=== PATIENT | male | born 1950 | race Caucasian/White ===

== ENCOUNTER 2020-10-08 11:49 | Emergency (ER) | payer MEDICARE, MEDICAID, OTHER, SELFPAY ==
--- NOTE | 2020-10-08 | ECG_ITS ---
Test Reason : CARDIAC HISTORY Blood Pressure : / mmHG Vent. Rate : 059 BPM Atrial Rate : 059 BPM P-R Int : 150 ms QRS Dur : 094 ms QT Int : 440 ms P-R-T Axes : 073 043 048 degrees QTc Int : 435 ms Sinus bradycardia Otherwise normal ECG When compared with ECG of 08-DEC-2019 00:47, Premature atrial complexes are no longer Present Borderline criteria for Inferior infarct are no longer Present Referred By: Lulu Carias Electronically Signed By:Navneet Chacon
[2020-10-08 12:02] VITALS: BP 110/70; BP 114/55; PULSE 80; RESP 16; TEMP 36.5; O2SAT 97; O2SAT 98; BMI 24.0
--- NOTE | 2020-10-08 12:58 | ED.GENADULT ---
HPI - General Adult General Chief complaint: ETOH/Substance Use Stated complaint: WANTS DETOX FROM HEROIN, USED 5 BAGS THIS AM Time Seen by Provider: 10/08/20 12:33 Source: EMS Mode of arrival: EMS Limitations: no limitations History of Present Illness HPI narrative: 70yo male with a history of throat cancer, GERD here with complaints of seeking detox for opiates. Last use this morning (IV heroin). Has been on suboxone before but more interested in inpatient detox. Spoke to [facility] this morning and referred to ED for medical clearance. Had an episode of palpitations in the the night but denies pain, sob, dizziness, nausea or diaphoresis. No additional substance use. NO SI. Related Data Allergies Allergy/AdvReac Type Severity Reaction Status Date / Time No Known Allergies Allergy Unverified 01/04/20 16:15 [No Known Allergies*] Review of Systems Review of Systems: Yes all other systems are reviewed and are negative Constitutional: Constitutional: Reports no additional constitutional complaints, Denies body ache(s), Denies chills, Denies fever(s), Denies headache(s) and Denies weakness Eyes: Eyes: Reports no additional eye complaints and Denies change in vision ENT: Reports system reviewed and no additional complaints, except as documented, Denies dizziness, Denies headache(s), Denies nasal congestion, Denies nasal discharge and Denies neck pain Cardiovascular: Cardiovascular: Reports no additional cardiovascular complaints, Denies chest pain, Denies leg edema, Reports palpitations and Denies dyspnea Respiratory: Respiratory: Reports no additional respiratory complaints, Denies cough and Denies dyspnea Gastrointestinal: Gastrointestinal: Reports no additional gastrointestinal complaints, Denies abdominal pain, Denies diarrhea, Denies nausea and Denies vomiting Genitourinary: Genitourinary: Denies urinary incontinence Musculoskeletal: Musculoskeletal: Reports no additional musculoskeletal complaints, Denies back pain, Denies arthralgias, Denies joint swelling, Denies neck pain, Denies numbness and Denies tingling Integumentary/Breasts: Skin/Breast: Reports system reviewed and no additional complaints, except as docu and Denies rash Neurologic: Reports system reviewed and no additional complaints, except as documented, Denies Abnormal speech present, Denies dizziness, Denies headache(s), Denies numbness, Denies tingling and Denies weakness Psychiatric: Psychiatric: Denies anxiety, Denies depression, Denies visual hallucinations, Denies hallucinations, Denies homicidal ideation and Denies suicidal ideation Endocrine: Endocrine: Reports palpitations PMFSH Past Medical History Attestation statement: The following information was validated with the patient. Source: old records reviewed and nursing notes reviewed Social History Social History Alcohol intake: former Patient Tobacco Use Status: Current everyday Tobacco user Smoked in Last 30 Days: Yes Use of substances other than those prescribed or required for medical reasons: Yes Substance Use Type: Heroin Substance Use Frequency: Chronic Longstanding Last Used Substance: Hours (ago) Any prior treatment program specific to substance use: Yes Advance Directives: No Advance Directives Information Provided: No Physical Exam Vital Signs: Vital Signs: Last Vital Signs Temp 97.7 F 10/08/20 12:02 Pulse 80 10/08/20 12:02 Resp 16 10/08/20 12:02 BP 114/55 L 10/08/20 12:02 Pulse Ox 97 10/08/20 12:02 Body Mass Index 24.0 Const: General: cooperative, healthy appearing, comfortable and no acute distress Orientation/consciousness: patient oriented x3 Limitations: no limitations HENMT: Head: Yes normal to inspection Ears: hearing grossly normal bilaterally General nose exam: Normal external nose present Face and sinus: Yes normal facial exam Mouth: Normal oral and palatal mucosa present Throat: Yes posterior oropharynx normal Eyes: General: appearance normal, both eyes and all related structures Pupils: Equal, round and reactive pupils present Neck: Neck: Yes normal visual inspection Chest: Chest palpation & inspection: normal inspection of the chest Resp: Effort & Inspection: normal respiratory effort Auscultation: clear to auscultation bilaterally Cardio: Rate: regular rate Rhythm: regular rhythm Peripheral pulses: Peripheral pulses 2+ throughout GI: Inspection: Yes normal to inspection Palpation (GI): Soft to palpation and nontender Auscultation: normal bowel sounds Back/Spine/Pelvis: Thoracic/Lumbar Spine: thoracic and lumbar spine normal to inspection Skin: General skin exam: no rashes or lesions noted Neuro: General: patient oriented x3, no focal motor deficits and normal sensation to monofilament Cranial nerves: Yes Equal, round and reactive pupils present Cognition (Neuro): normal cognition Speech: No Abnormal speech present Gait exam (Neuro): Normal gait present Motor exam (neuro): 08/21 motor strength present throughout Extrem: General: Yes normal to inspection and Yes no pedal edema Course Course Course Narrative: 70 yo male here seeking detox for opiates. Episode of palpitations during the night but no other symptoms. Per kids activities coach patient will need EKG, labs, BAHENA, COVID screen for medical clearance. Apparently PD was on scene during transport although unclear why as patient reportedly here voluntary for detox with NO SI. WIll place care team consult to obtain collateral information. -no concern for acute ingestion or trauma. pending care team plan. placed in physician observation pending above. 1700-Sign out to night team pending above. Medical Decision Making Medical Records Medical records reviewed: Yes I reviewed the patient's medical records. Lab Data Lab results reviewed: Yes I reviewed the patient's lab results. Result diagrams: 10/08/20 13:26 10/08/20 13:26 Labs: Lab Results 10/08/20 10/08/20 10/08/20 Range/Units 13:26 13:26 13:26 WBC 7.9 (4.8-10.8) X10*3/uL RBC 4.37 L (4.60-5.80) X10*6/uL Hgb 12.6 L (14.0-18.0) g/dl Hct 37.7 L (42-52) % MCV 86.3 (80-98) fL MCH 28.8 (27.0-33.0) pg MCHC 33.4 (31.0-36.0) g/dl RDW 14.4 (11.0-16.0) % Plt Count 251 (160-400) X10*3/uL MPV 9.4 (9.4-12.4) fL Immature Gran % (Auto) 0.1 (0.0-0.4) % Neut % (Auto) 65.3 (45-73) % Lymph % (Auto) 25.7 (20-40) % Ell[place] % (Auto) 7.6 (2-11) % Eos % (Auto) 0.9 (0-4) % Baso % (Auto) 0.4 (0-2) % Lymph # (Auto) 2.0 (1.2-4.9) X10*3/uL [place] # (Auto) 0.6 (0.1-1.2) X10*3/uL Eos # (Auto) 0.1 (0.0-0.4) X10*3/uL Baso # (Auto) 0.0 (0.0-0.2) X10*3/uL Abs Immat Gran (auto) 0.01 (0.00-0.03) X10*3/uL Absolute Neuts (auto) 5.1 (2.0-8.3) X10*3/uL Absolute Nucleated RBC 0.000 (0.0-0.012) X10*3/uL Nucleated RBC % (auto) 0.0 (0.0-0.2) /100WBC Sodium 137 (135-145) mmol/L Potassium 4.2 (3.3-5.1) mmol/L Chloride 102 (96-108) mmol/L Carbon Dioxide 31 H (22-29) mmol/L Anion Gap 8 L (12-20) BUN 10 (9-16) mg/dL Creatinine 0.85 (0.5-1.4) mg/dL Estim Creat Clear Calc 94.0 Estimated GFR > 60 Random Glucose 133 H (60-115) mg/dL Calcium 8.9 (8.4-10.2) mg/dL Total Bilirubin 0.5 (0.0-1.0) mg/dL Direct Bilirubin 0.2 (0.0-0.5) mg/dL AST 19 (5-37) U/L ALT 11 (0-40) U/L Alkaline Phosphatase 66 (39-117) U/L Total Protein 6.3 L (6.5-8.0) g/dL Albumin 3.9 (3.5-5.0) g/dL Urine Opiates Screen (Not Detect) Ur Barbiturates Screen (Not Detect) Ur Phencyclidine Scrn (Not Detect) Ur Amphetamines Screen (Not Detect) U Benzodiazepines Scrn (Not Detect) Urine Cocaine Screen (Not Detect) U Marijuana (THC) Screen (Not Detect) Ethyl Alcohol mg/dL COVID-19 (JYOTI) Negative (Negative) COVID-19 Clin Com See Note 10/08/20 10/08/20 Range/Units 13:26 15:19 WBC (4.8-10.8) X10*3/uL RBC (4.60-5.80) X10*6/uL Hgb (14.0-18.0) g/dl Hct (42-52) % MCV (80-98) fL MCH (27.0-33.0) pg MCHC (31.0-36.0) g/dl RDW (11.0-16.0) % Plt Count (160-400) X10*3/uL MPV (9.4-12.4) fL Immature Gran % (Auto) (0.0-0.4) % Neut % (Auto) (45-73) % Lymph % (Auto) (20-40) % Ellsworth % (Auto) (2-11) % Eos % (Auto) (0-4) % Baso % (Auto) (0-2) % Lymph # (Auto) (1.2-4.9) X10*3/uL Ell[place] # (Auto) (0.1-1.2) X10*3/uL Eos # (Auto) (0.0-0.4) X10*3/uL Baso # (Auto) (0.0-0.2) X10*3/uL Abs Immat Gran (auto) (0.00-0.03) X10*3/uL Absolute Neuts (auto) (2.0-8.3) X10*3/uL Absolute Nucleated RBC (0.0-0.012) X10*3/uL Nucleated RBC % (auto) (0.0-0.2) /100WBC Sodium (135-145) mmol/L Potassium (3.3-5.1) mmol/L Chloride (96-108) mmol/L Carbon Dioxide (22-29) mmol/L Anion Gap (12-20) BUN (9-16) mg/dL Creatinine (0.5-1.4) mg/dL Estim Creat Clear Calc Estimated GFR Random Glucose (60-115) mg/dL Calcium (8.4-10.2) mg/dL Total Bilirubin (0.0-1.0) mg/dL Direct Bilirubin (0.0-0.5) mg/dL AST (5-37) U/L ALT (0-40) U/L Alkaline Phosphatase (39-117) U/L Total Protein (6.5-8.0) g/dL Albumin (3.5-5.0) g/dL Urine Opiates Screen POSITIVE H (Not Detect) Ur Barbiturates Screen Not Detected (Not Detect) Ur Phencyclidine Scrn Not Detected (Not Detect) Ur Amphetamines Screen Not Detected (Not Detect) U Benzodiazepines Scrn Not Detected (Not Detect) Urine Cocaine Screen Not Detected (Not Detect) U Marijuana (THC) Screen Not Detected (Not Detect) Ethyl Alcohol < 10 mg/dL COVID-19 (JYOTI) (Negative) COVID-19 Clin Com ECG Data Attestation: I personally reviewed and interpreted this ECG as follows: Interpretation: SB with rate 57, normal pr, normal qrs, normal qtc Discharge Plan Discharge Clinical Impression: Opioid abuse
[2020-10-08 13:33] LABS: MANUAL DIFF FLAG NO
[2020-10-08 13:41] LABS: Basophils Percent Auto 0.4 % (0-2); Eosinophils Absolute Auto 0.1 X10*3/uL (0.0-0.4); Eosinophils Percent Auto 0.9 % (0-4); Hematocrit 37.7 % (42-52); Hemoglobin 12.6 g/dl (14.0-18.0); Imm Gran Abs Auto 0.01 X10*3/uL (0.00-0.03); Imm Gran Pct Auto 0.1 % (0.0-0.4); Lymphocytes Percent Auto 25.7 % (20-40); Mean Corpuscular HGB Conc 33.4 g/dl (31.0-36.0); Mean Corpuscular Hemoglobin 28.8 pg (27.0-33.0); Mean Corpuscular Volume 86.3 fL (80-98); Mean Platelet Volume 9.4 fL (9.4-12.4); Monocytes Absolute Auto 0.6 X10*3/uL (0.1-1.2); Monocytes Percent Auto 7.6 % (2-11); Neutrophils Absolute Auto 5.1 X10*3/uL (2.0-8.3); Neutrophils Percent Auto 65.3 % (45-73); Platelet Count 251 X10*3/uL (160-400); Red Blood Count 4.37 X10*6/uL (4.60-5.80); Red Cell Distribution Width 14.4 % (11.0-16.0); White Blood Count 7.9 X10*3/uL (4.8-10.8)
[2020-10-08 13:49] LABS: COVID-19 Test Negative (Negative)
[2020-10-08 14:03] LABS: Ethanol < 10 mg/dL
[2020-10-08 14:10] LABS: Alanine Aminotransferase 11 U/L (0-40); Albumin Level 3.9 g/dL (3.5-5.0); Alkaline Phosphatase 66 U/L (39-117); Anion Gap 8 (12-20); Aspartate Amino Transferase 19 U/L (5-37); Bilirubin Direct 0.2 mg/dL (0.0-0.5); Bilirubin Total 0.5 mg/dL (0.0-1.0); Blood Urea Nitrogen 10 mg/dL (9-16); Calcium 8.9 mg/dL (8.4-10.2); Carbon Dioxide 31 mmol/L (22-29); Chloride 102 mmol/L (96-108); Estimated Glomerular Filt Rate > 60; Glucose Random 133 mg/dL (60-115); Potassium 4.2 mmol/L (3.3-5.1); Sodium 137 mmol/L (135-145); Total Protein 6.3 g/dL (6.5-8.0)
[2020-10-08 16:00] LABS: Amphetamine Screen Urine Not Detected (Not Detect); Barbiturates, Urine Not Detected (Not Detect); Benzodiazepines Screen Urine Not Detected (Not Detect); Cannabinoid Screen Urine Not Detected (Not Detect); Cocaine Screen Urine Not Detected (Not Detect); Opiate Screen Urine POSITIVE (Not Detect); Phencyclidine Screen Urine Not Detected (Not Detect)
[2020-10-08] MEDS: LORazepam 0.5 MG TABLET 1 MG PO (16:15)
--- NOTE | 2020-10-08 16:29 | MHC.CARE ---
Call to [facility] intake. They do not have any record of communication with patient. Faxed transfer summary and facesheet. They do not have beds, can F/U tomorrow. Failure Analysis Engineer or CARE Team will check in with patient to discuss plan Provider would like CARE Team to reach out to collaterals to see if there is a psychiatric component.
[2020-10-08 17:10] VITALS: BP 92/50; PULSE 58; RESP 18; TEMP 36.5; O2SAT 96
--- NOTE | 2020-10-08 19:09 | MHC.RECOVSUP ---
? Reason for consult Follow up o Current location: [facility] o Identified substance use concern: Heroin - Withdrawal - Seeking ATS (detox) - Support ? Intervention: <del>o</del> <del>ATS</del> <del>bed</del> <del>search</del> <del>started/completed/in</del> <del>process</del> <del>o</del> <del>MAT</del> <del>started</del> <del>or</del> <del>to</del> <del>be</del> <del>started</del> o Community resources provided o Harm reduction discussion ? Plan: o <del>Referral</del> <del>to</del> <del>[facility]</del> <del>o</del> <del>Bed</del> <del>search</del> <del>in</del> <del>progress</del> <del>to</del> <del>o</del> <del>Follow</del> <del>up</del> <del>tomorrow</del> <del>o</del> <del>Patient</del> <del>awaiting</del> <del>crisis</del> <del>evaluation</del> <del>o</del> <del>Patient</del> <del>to</del> <del>follow</del> <del>up</del> <del>with</del> <del>[facility]</del> <del>after</del> <del>discharge</del> ? Additional information: I followed up with ryland and ryland stated that maybe in the Morning..
--- NOTE | 2020-10-08 19:59 | MHC.CARE ---
CARE team has made several attempts to fax referral packet to [facility] for review, with all attempts failing. CARE/Recovery team will follow up with [facility] in the morning. ED provider requested that some collateral be obtained due to concern for the presence of a possible psychiatric disorder, however there are no contacts listed in pt's current medical record and has not provided any. Previous medical record has contact information for pt's brother Kenny, however it is also noted that they are minimally involved in one another's lives. This development writer found that pt has a history of hospitalization on M5 in June 2019 after receiving his diagnosis of throat cancer and attempting to end his life via intentional overdose and another attempt in November 2019 that did not result in hospitalization. No other psychiatric history documented. Per record- pt had been in recovery and taking suboxone, relapsing after being diagnosed with cancer.
[2020-10-08] MEDS: Acetaminophen 325 MG TABLET 650 MG PO (20:03)
[2020-10-08 20:13] VITALS: PULSE 59
[2020-10-08 20:21] VITALS: BP 104/44; PULSE 59; RESP 14; TEMP 36.6; O2SAT 95
--- NOTE | 2020-10-08 20:24 | PC.NURSE ---
Patient requested Tylenol for Headache, administered 650 mg as ordered, COW assessed scored 2, patient asked of withdrawal symptoms/notified that he is aware of withdrawal and at this time he asymptomatic, agreed to notify if he feels withdrawal, VSS, will continue to monitor.
[2020-10-08 23:50] VITALS: BP 100/64; PULSE 54; RESP 17; TEMP 36.8; O2SAT 97
[2020-10-09 04:22] VITALS: PULSE 60
[2020-10-09 04:23] VITALS: BP 139/85; PULSE 60; RESP 17; TEMP 36.5; O2SAT 99
[2020-10-09 04:30] VITALS: BP 139/85; PULSE 60
[2020-10-09] MEDS: cloNIDine HCL 0.1 MG TABLET PO (04:30)
--- NOTE | 2020-10-09 06:03 | PC.NURSE ---
Patient slept through the night, up once for bathroom use back, VSS, scored 3 on COWS, received Clonidine 0.1 mg with + effect, will continue to monitor.
--- NOTE | 2020-10-09 07:12 | PC.NURSE ---
report taken from arely stearns pt here for detox help, has reportedly had minimal withdrawal s/s, was given prn clonidine per previous shift rn. is sitting up at bedside, eating breakfast, tolerating po w/o issue. wctm for dc needs.
--- NOTE | 2020-10-09 09:55 | MHC.CARE ---
Patient finished telephone intake with JOSEPHINE Fernandez at [facility]. Has been accepted, they will pick him up at home and are arranging time with patient directly. CARE Team to fax COVID results and LYFT patient home. Providers updated about plan.
[2020-10-09 10:42] VITALS: BP 114/63; PULSE 56; RESP 16; TEMP 36.9; O2SAT 95
== END 2020-10-09 11:26 | disposition home or self-care (01) ==
PROVIDERS: Nurse Practitioner Family; Emergency Provider Emergency Medicine Emergency Medical Services; PCP Internal Medicine
DX: F11.10 Opioid abuse, uncomplicated (principal); R00.2 Palpitations; Z20.822 Contact with and (suspected) exposure to COVID-19
CPT/HCPCS: 36415; 80048; 80076; 80307; 82077; 85025; 87635; 93005; 99285

== ENCOUNTER 2021-01-18 16:27 | Inpatient (IN) | payer MEDICARE, MEDICAID, SELFPAY ==
--- NOTE | ~2021-01-18 | XR_ITS ---
EXAMINATION: XR HAND, RIGHT CLINICAL INFORMATION: Right hand pain and swelling. COMPARISON: None TECHNIQUE: PA, lateral, and oblique views of the right hand. FINDINGS: Probable nondisplaced fracture through the radial aspect of the 1st distal phalangeal base which contacts the articular surface. Overlying soft tissue swelling. First interphalangeal joint space narrowing with small marginal osteophytes. Additional degenerative arthritis at the triscaphe and 1st carpometacarpal joints as well as scattered throughout the interphalangeal joints. Possible mildly displaced, acute fracture along the radial base of the 5th proximal phalanx. Correlation for focal tenderness is recommended. XR/XR hand RT 2V IMPRESSION: 1. Probable nondisplaced fracture through the radial aspect of the 1st distal phalanx which contacts the articular surface. 2. Possible mildly displaced fracture along the radial base of the 5th proximal phalanx. Correlate for focal tenderness. 3. Scattered degenerative arthritis.
[2021-01-18 16:33] VITALS: BP 139/77; PULSE 71; RESP 18; TEMP 36.7; O2SAT 98; BMI 21.1
--- NOTE | 2021-01-18 17:07 | MHC.RECOVSUP ---
Recovery Support note: This ghost writer received a call earlier today from the brother of this patient seeking information on detox. Brother reports that patient was at [facility] a week ago however was discharged due to making SI statements. This ghost writer explained that if patient is still feeling suicidal, he may need a higher level of care. This ghost writer conducted an ATS bedsearch and provided patient's brother with information on available beds.
[2021-01-18 17:52] LABS: MANUAL DIFF FLAG NO
[2021-01-18 17:55] LABS: Basophils Percent Auto 0.3 % (0-2); Eosinophils Absolute Auto 0.1 X10*3/uL (0.0-0.4); Eosinophils Percent Auto 1.2 % (0-4); Hematocrit 37.4 % (42-52); Hemoglobin 12.6 g/dl (14.0-18.0); Imm Gran Abs Auto 0.01 X10*3/uL (0.00-0.03); Imm Gran Pct Auto 0.1 % (0.0-0.4); Lymphocytes Absolute Auto 2.1 X10*3/uL (1.2-4.9); Lymphocytes Percent Auto 29.3 % (20-40); Mean Corpuscular HGB Conc 33.7 g/dl (31.0-36.0); Mean Corpuscular Hemoglobin 29.4 pg (27.0-33.0); Mean Corpuscular Volume 87.4 fL (80-98); Mean Platelet Volume 9.9 fL (9.4-12.4); Monocytes Absolute Auto 0.7 X10*3/uL (0.1-1.2); Monocytes Percent Auto 9.8 % (2-11); Neutrophils Absolute Auto 4.3 X10*3/uL (2.0-8.3); Neutrophils Percent Auto 59.3 % (45-73); Platelet Count 265 X10*3/uL (160-400); Red Blood Count 4.28 X10*6/uL (4.60-5.80); Red Cell Distribution Width 13.4 % (11.0-16.0); White Blood Count 7.3 X10*3/uL (4.8-10.8)
[2021-01-18 18:12] LABS: Ethanol < 10 mg/dL
[2021-01-18 18:14] LABS: Anion Gap 13 (12-20); Blood Urea Nitrogen 13 mg/dL (9-16); Calcium 9.5 mg/dL (8.4-10.2); Carbon Dioxide 28 mmol/L (22-29); Chloride 102 mmol/L (96-108); Creatinine Clr Calc Pharmacy 70.4; Estimated Glomerular Filt Rate > 60; Glucose Random 91 mg/dL (60-115); Potassium 4.5 mmol/L (3.3-5.1); Sodium 138 mmol/L (135-145)
[2021-01-18 18:15] LABS: Amphetamine Screen Urine Not Detected (Not Detect); Barbiturates, Urine Not Detected (Not Detect); Benzodiazepines Screen Urine Not Detected (Not Detect); Cannabinoid Screen Urine Not Detected (Not Detect); Cocaine Screen Urine Not Detected (Not Detect); Fentanyl, urine POSITIVE (Not Detect); Opiate Screen Urine Not Detected (Not Detect); Phencyclidine Screen Urine Not Detected (Not Detect)
--- NOTE | 2021-01-18 18:23 | ED_ITS ---
HPI - Psych General Chief Complaint: Psychiatric Symptoms Stated Complaint: crisis Time Seen by Provider: 01/18/21 17:08 History of Present Illness HPI Narrative: Patient presented today wanting help. He denies any suicidal homicidal ideation currently. But had suicidal ideation earlier. Patient used heroin. Wants to stop. Has a history of opiate addiction. Stop for 30 years. Subsequently patient was given opiate. Had a history of esophageal cancer was in hospice program. Patient subsequently left the hospice program continue to need narcotics. And decided to get heroin from the street. Patient's shoots his drugs. Patient denies any SI HI. Presented for help. He has no nausea no vomiting is tolerating fluids. No fever no chills. Related Data Home Medications Medication Instructions Recorded Confirmed clonazepam 1 mg tablet 1 mg PO TID PRN 10/08/20 01/18/21 fluoxetine 20 mg capsule 20 mg PO DAILY 10/08/20 01/18/21 quetiapine 25 mg tablet 25 mg PO BEDTIME 10/08/20 01/18/21 trazodone 50 mg tablet 50 mg PO BEDTIME PRN 10/08/20 01/18/21 omeprazole 20 mg capsule,delayed 20 mg PO DAILY 01/18/21 01/18/21 release ropinirole 1 mg tablet 1 mg PO BID 01/18/21 01/18/21 Previous Rx's Medication Instructions Recorded clonidine HCl 0.1 mg tablet 0.1 mg PO TID #30 tab 10/09/20 Allergies Allergy/AdvReac Type Severity Reaction Status Date / Time No Known Allergies Allergy Unverified 01/04/20 16:15 [No Known Allergies*] Review of Systems Review of Systems: No fever no chills no cough no congestion or respiratory symptoms All system reviewed otherwise negative [facility] Past Medical History Attestation statement: The following information was validated with the patient. Social History Social History Alcohol intake: current Alcohol intake frequency: holidays/special occasions only Patient Tobacco Use Status: Current everyday Tobacco user Use of substances other than those prescribed or required for medical reasons: Yes Substance Use Type: Heroin Last Used Substance: Just Prior to Admission Advance Directives: No Advance Directives Information Provided: No Physical Exam Vital Signs: Vital Signs: Last Vital Signs Temp 98.1 F 01/18/21 16:33 Pulse 60 10/02/21 22:54 Resp 18 01/18/21 16:33 BP 156/73 H 01/18/21 22:54 Pulse Ox 98 01/18/21 16:33 Body Mass Index 21.1 Appearance: Alert. Oriented X3. No acute distress. Eyes: Pupils equal, round and reactive to light. ENT: Pharynx normal. Neck: Normal inspection. Neck supple. No lymph nodes noted. No crepitus CVS: Normal heart rate and rhythm. Pulses normal. Normal S1 and S2 Respiratory: No respiratory distress. Breath sounds normal. No Wheezing. No rales Abdomen: Soft and nontender. No rigidity. No distention. good BS x4 Skin: Skin warm and dry. Normal skin color. Normal skin turgor. Extremities: No lower extremity edema. Neurovascular intact to all extremities. No Lacerations. No Rash Neuro: Oriented X 3. No motor deficit. No sensory deficit. Moving all extermities. No slurred speech MDM - Psych MDM Narrative Medical decision making narrative: Well-appearing no acute distress awaiting crisis evaluation Patient evaluated by [facility]. Patient to be admitted. Positive suicidal ideation. Lab Data Result diagrams: 01/18/21 17:44 01/18/21 17:44 Labs: Lab Results 01/18/21 01/18/21 01/18/21 Range/Units 17:44 17:44 17:44 WBC 7.3 (4.8-10.8) X10*3/uL RBC 4.28 L (4.60-5.80) X10*6/uL Hgb 12.6 L (14.0-18.0) g/dl Hct 37.4 L (42-52) % MCV 87.4 (80-98) fL MCH 29.4 (27.0-33.0) pg MCHC 33.7 (31.0-36.0) g/dl RDW 13.4 (11.0-16.0) % Plt Count 265 (160-400) X10*3/uL MPV 9.9 (9.4-12.4) fL Immature Gran % (Auto) 0.1 (0.0-0.4) % Neut % (Auto) 59.3 (45-73) % Lymph % (Auto) 29.3 (20-40) % [place] % (Auto) 9.8 (2-11) % Eos % (Auto) 1.2 (0-4) % Baso % (Auto) 0.3 (0-2) % Lymph # (Auto) 2.1 (1.2-4.9) X10*3/uL [place] # (Auto) 0.7 (0.1-1.2) X10*3/uL Eos # (Auto) 0.1 (0.0-0.4) X10*3/uL Baso # (Auto) 0.0 (0.0-0.2) X10*3/uL Abs Immat Gran (auto) 0.01 (0.00-0.03) X10*3/uL Absolute Neuts (auto) 4.3 (2.0-8.3) X10*3/uL Absolute Nucleated RBC 0.000 (0.0-0.012) X10*3/uL Nucleated RBC % (auto) 0.0 (0.0-0.2) /100WBC Sodium 138 (135-145) mmol/L Potassium 4.5 (3.3-5.1) mmol/L Chloride 102 (96-108) mmol/L Carbon Dioxide 28 (22-29) mmol/L Anion Gap 13 (12-20) BUN 13 (9-16) mg/dL Creatinine 0.87 (0.5-1.4) mg/dL Estim Creat Clear Calc 70.4 Estimated GFR > 60 Random Glucose 91 (60-115) mg/dL Calcium 9.5 D (8.4-10.2) mg/dL Urine Opiates Screen (Not Detect) Urine Fentanyl Screen (Not Detect) Ur Barbiturates Screen (Not Detect) Ur Phencyclidine Scrn (Not Detect) Ur Amphetamines Screen (Not Detect) U Benzodiazepines Scrn (Not Detect) Urine Cocaine Screen (Not Detect) U Marijuana (THC) Screen (Not Detect) Ethyl Alcohol < 10 mg/dL 01/18/21 Range/Units 17:44 WBC (4.8-10.8) X10*3/uL RBC (4.60-5.80) X10*6/uL Hgb (14.0-18.0) g/dl Hct (42-52) % MCV (80-98) fL MCH (27.0-33.0) pg MCHC (31.0-36.0) g/dl RDW (11.0-16.0) % Plt Count (160-400) X10*3/uL MPV (9.4-12.4) fL Immature Gran % (Auto) (0.0-0.4) % Neut % (Auto) (45-73) % Lymph % (Auto) (20-40) % [place]arro % (Auto) (2-11) % Eos % (Auto) (0-4) % Baso % (Auto) (0-2) % Lymph # (Auto) (1.2-4.9) X10*3/uL [place] # (Auto) (0.1-1.2) X10*3/uL Eos # (Auto) (0.0-0.4) X10*3/uL Baso # (Auto) (0.0-0.2) X10*3/uL Abs Immat Gran (auto) (0.00-0.03) X10*3/uL Absolute Neuts (auto) (2.0-8.3) X10*3/uL Absolute Nucleated RBC (0.0-0.012) X10*3/uL Nucleated RBC % (auto) (0.0-0.2) /100WBC Sodium (135-145) mmol/L Potassium (3.3-5.1) mmol/L Chloride (96-108) mmol/L Carbon Dioxide (22-29) mmol/L Anion Gap (12-20) BUN (9-16) mg/dL Creatinine (0.5-1.4) mg/dL Estim Creat Clear Calc Estimated GFR Random Glucose (60-115) mg/dL Calcium (8.4-10.2) mg/dL Urine Opiates Screen Not Detected (Not Detect) Urine Fentanyl Screen POSITIVE H (Not Detect) Ur Barbiturates Screen Not Detected (Not Detect) Ur Phencyclidine Scrn Not Detected (Not Detect) Ur Amphetamines Screen Not Detected (Not Detect) U Benzodiazepines Scrn Not Detected (Not Detect) Urine Cocaine Screen Not Detected (Not Detect) U Marijuana (THC) Screen Not Detected (Not Detect) Ethyl Alcohol mg/dL Discharge Plan Discharge Clinical Impression: Suicidal ideation Prescriptions: No Action quetiapine 25 mg tablet 25 mg PO BEDTIME RF: 0 clonazepam 1 mg tablet 1 mg PO TID PRN (Reason: Anxiety) RF: 0 fluoxetine 20 mg capsule 20 mg PO DAILY RF: 0 trazodone 50 mg tablet 50 mg PO BEDTIME PRN (Reason: Insomnia) RF: 0 clonidine HCl 0.1 mg tablet 0.1 mg PO TID Qty: 30 RF: 0 ropinirole 1 mg tablet 1 mg PO BID RF: 0 omeprazole 20 mg capsule,delayed release(DR/EC) 20 mg PO DAILY RF: 0
--- NOTE | 2021-01-18 19:35 | ECG_ITS ---
Test Reason : MED CLEARANCE Blood Pressure : / mmHG Vent. Rate : 058 BPM Atrial Rate : 058 BPM P-R Int : 154 ms QRS Dur : 096 ms QT Int : 440 ms P-R-T Axes : 059 039 058 degrees QTc Int : 431 ms Sinus bradycardia Otherwise normal ECG When compared with ECG of 08-OCT-2020 13:42, No significant change was found Referred By: Selena Sims Electronically Signed By:ROSARIO CASTELLON
--- NOTE | 2021-01-18 20:05 | MHC.CARE ---
CARE team contacted [facility]. Pt was evaluated prior to arrival to the ED at the [facility] crisis office in [place] with disposition for inpatient psychiatric admission. His brother transported him to the ED to await placement. There is an available bed on S1 this evening and pt will be presented for admission.
[2021-01-18 22:54] VITALS: BP 156/73; PULSE 60
[2021-01-18] MEDS: cloNIDine HCL 0.1 MG TABLET PO (22:54)
[2021-01-18] MEDS: QUEtiapine Fumarate 25 MG TABLET PO (22:54)
[2021-01-18] MEDS: clonazePAM 1 MG TABLET PO (22:56)
[2021-01-18] MEDS: rOPINIRole HCL 1 MG TABLET PO (22:56)
[2021-01-19 08:01] VITALS: BP 125/57; PULSE 52; RESP 16; O2SAT 97
[2021-01-19] MEDS: Omeprazole 20 MG CAPSULE.DR PO (08:27)
[2021-01-19] MEDS: FLUoxetine HCl 20 MG CAPSULE PO (08:27)
[2021-01-19 08:28] VITALS: BP 125/57; PULSE 52
[2021-01-19] MEDS: cloNIDine HCL 0.1 MG TABLET PO ×3 (08:28→21:14)
[2021-01-19] MEDS: rOPINIRole HCL 1 MG TABLET PO ×2 (08:37→23:59)
[2021-01-19 10:58] VITALS: BP 125/63; PULSE 50; RESP 16; O2SAT 97
[2021-01-19 15:30] LABS: COVID-19 Test Negative (Negative)
[2021-01-19 16:10] VITALS: BP 132/69; PULSE 60; RESP 18; TEMP 36.8; O2SAT 99
[2021-01-19 16:14] VITALS: BP 132/69; PULSE 60
[2021-01-19] MEDS: clonazePAM 1 MG TABLET PO ×2 (16:14→22:24)
--- NOTE | 2021-01-19 19:04 | MHC.CARE ---
CARE team spoke with registered medical transcriptionist psychiatrist Dr. Gaytan via [employer] re: initial plan for pt to be admitted to S1 Older Adult Unit. Per Dr. Gaytan, pt would be a better fit for one of the two adult units due to concerns for behavioral issues related to opiate withdrawal. Pt is unable to be admitted to either adult unit this evening and will likely remain in ED overnight pending confirmed plan of care.
[2021-01-19 21:14] VITALS: BP 122/70; PULSE 70
[2021-01-19] MEDS: QUEtiapine Fumarate 25 MG TABLET PO (21:14)
[2021-01-19] MEDS: traZODone HCL 50 MG TABLET PO (22:25)
[2021-01-19] MEDS: LORazepam 1 MG TABLET 2 MG PO (23:59)
[2021-01-20] VITALS (8 sets, daily range): BP systolic 95–113; BP diastolic 59–70; PULSE 57–86; RESP 12–18; TEMP 36.4–37; O2SAT 96–99; BMI 20.4
--- NOTE | 2021-01-20 06:33 | PC.NURSE ---
Patient slept through the night, no distress observed/reported, patient's disposition is inpatient bed search, pre-accepted to S1, behavior appropriate, medication compliant, will continue to monitor
--- NOTE | 2021-01-20 07:22 | PC.NURSE ---
patient appears to remain asleep at present, respirations are even and unlabored, patient appears in no distress.
[2021-01-20] MEDS: cloNIDine HCL 0.1 MG TABLET PO ×2 (08:00→14:09)
[2021-01-20] MEDS: Omeprazole 20 MG CAPSULE.DR PO (08:00)
[2021-01-20] MEDS: FLUoxetine HCl 20 MG CAPSULE PO (08:01)
[2021-01-20] MEDS: rOPINIRole HCL 1 MG TABLET PO ×2 (08:01→20:23)
--- NOTE | 2021-01-20 18:06 | PC.ADMIT ---
Bulmaro Astudillo is a 70 year old male who presented to the unit in a wheelchair escorted by security from the ED pod. Patient is Alert and oriented x4. Patient is agitated with a congruent affect. Patient was taken to be weighed. Weight was 61 kg, where patient then stated I lost 5 pounds . When asked he stated that it was unintentional. Patient is dressed in hospital attire with non skid socks on. Patient is being admitted for suicidal ideation. Patient verbalized to his therapist once he received his check he intends to buy as many drugs as possible and over dose as my life is not worth living . On 01/18 patient reported using 10 bag of heroin to actively end his life. Patient was then admitted to [facility] on 01/18 later in the day. Patient has a substance abuse history and reported being clean for 30 years until 2019. Patient received a diagnosis of esophageal cancer in 2019 where he was given 6 months to live. Patient was placed on hospice services where he was later dismissed due to actively using heroin. Patient presenting agitated and anxious during admission interview. Patient stated that he was having tremors, leg cramps, and was nauseous. Vital signs were stable. Nurse practitioner on was notified. Longterm through admission assessment patient became very agitated and stated he was done answering questions. Patient continued to get up and walk away. Patient proceeded to get up and walk to [facility] to eat dinner, ate 75% of meal. Patient is asking for methadone or suboxone, Nurse practitioner aware.
--- NOTE | 2021-01-20 18:23 | HO.PSYADMNOT ---
HPI Chief Complaint: suicidal ideation Sources of Information: patient interviewed, chart reviewed and crisis/core team assessment reviewed HPI Subjective Notes: Lozano Warning and Conditional Voluntary Narrative: Bulmaro is a 70 y.o. Who carries a dx of MDD, recurrent and opioid use disorder. He [place] [facility] [place]21 due to SI with plan to OD if he is not placed in detox today. His counselor at [facility] contacted [facility] crisis for assessment and he was seen on site at [facility]. He has recent relapse on heroin, last used 10 bundles IV on 01/18/21, using daily x 1 week. Says he wants to stop using, not on MAT, previously on buprenorphine 8-2mg film QD but D/C?d in November. Has co-morbid medical issues, says he has biopsy coming up at end of mo and has been diagnosed with esophageal cancer in 2019, hx of being in hospice. Reports leaving hospice program AMA due to receiving morphine there and craving narcotics, decided to get heroin from the street.? I evaluated the pt this evening and upon interview he reports ?I dont want to do fenatnyl anymore, i have to be on suboxone. I did good on it.? Says he tried to abstain from heroin ?cold turkey for a couple days, but yesterday i couldnt do it anymore.? Endorses sx of withdrawal including ?cramping in my legs and arms, i cant stand it.? Per pt, he was in hospice a couple yrs ago ?for trouble with my throat, I got turned on to morphine and away we went.? Reports his mood is ?very depressed.? Sleep is poor. Says he is dizzy, ?I thought i was gonna pass out just going to the nurses station.? He is able to eat, has difficulty swallowing. He is perseverative during interview on wanting suboxone and doesn?t want to talk about much else. Consult to addiction services placed.? Current med regimen: Klonopin 1 mg TID PRN, prozac 20 mg QD, seroquel 25 mg QHS, trazodone 50 mg QHS PRN, clonidine 0.1 mg TID. Past Psychiatric History: Past meds: gabapentin 300 mg BID PPH: -Has OP services at [facility]. Has rep payee (brother) -Prescriber is Chaparro Ramirez -Hx of multiple crisis evals and IPLOC. Last crisis eval in 12/2019 for SI, disposition was IPLOC. Hx of being admitted to [facility] 11/2019 after being found unresponsive by his visiting nurse, intentional OD on his meds. Prev on [facility] 06/2019 due to being found unresponsive in his home, allegedly wrote a note in which he indicated that he had planned to kill himself. Medical Evaluation Reviewed: Yes PMFSH Social History: SH: -He resides by himself alone. He has two brothers. Single and has never been , no children. 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 Last used 10 bundles on 01/18/21. -Hx of MAT, previously on buprenorphine 8-2mg film QD but D/C?d in 11/2020. -Per chart, he was sober over 30 yrs, relapsed 2019 s/p being diagnosed with throat cancer Diagnostics Vital Signs (24Hr): Vital Signs - 24 hr 01/19/21 21:14 01/20/21 05:02 01/20/21 08:00 Temperature 97.7 F Pulse Rate 70 66 66 Respiratory Rate 16 Blood Pressure 122/70 96/66 96/66 Pulse Oximetry 98 01/20/21 08:34 01/20/21 14:09 01/20/21 16:33 Temperature 98.6 F 97.6 F Pulse Rate 57 57 61 Respiratory Rate 12 14 Blood Pressure 95/60 95/60 113/70 Pulse Oximetry 99 96 Body Mass Index 20.4 Labs Results: 01/18/21 17:44 01/18/21 17:44 Labs: Laboratory Results - last 48 hr 01/19/21 15:06 COVID-19 (JYOTI) Negative COVID-19 Clin Com See Note Meds/Allergies Meds Home Medications Acetaminophen (Acetaminophen 325 Mg Tablet) 650 mg PO Q6H PRN PRN Reason: Headache/Pain Mild Scale (1-3) Last Admin: 01/21/21 04:10 Dose: 650 mg Documented by: Al Hydroxide/Mg Hydroxide (Magnesium Hydrox/Alum Hydrox 30 Ml Oral.Susp) 30 ml PO Q6H PRN PRN Reason: Heartburn/Nausea Buprenorphine/Naloxone (Buprenorphine/Naloxone 2/0.5mg Film) 1 film SUBLINGUAL DAILY [facility] Last Admin: 01/21/21 07:29 Dose: 1 film Documented by: Clonazepam (Clonazepam 0.5 Mg Tablet) 0.5 mg PO TID PRN PRN Reason: Anxiety Last Admin: 01/21/21 04:10 Dose: 0.5 mg Documented by: Clonidine HCl (Clonidine Hcl 0.1 Mg Tablet) 0.05 mg PO TID [facility]; Protocol Last Admin: 01/21/21 07:30 Dose: 0.05 mg Documented by: Fluoxetine HCl (Fluoxetine Hcl 20 Mg Capsule) 20 mg PO DAILY [facility] Last Admin: 01/21/21 07:29 Dose: 20 mg Documented by: Hydroxyzine HCl (Hydroxyzine Hcl 25 Mg Tablet) 25 mg PO BEDTIME PRN PRN Reason: Anxiety Last Admin: 01/20/21 23:57 Dose: 25 mg Documented by: Magnesium Hydroxide (Milk Of Magnesia 30 Ml Oral.Susp) 30 ml PO DAILY PRN PRN Reason: Constipation Omeprazole (Omeprazole 20 Mg Capsule.Dr) 20 mg PO DAILY [facility] Last Admin: 01/21/21 07:30 Dose: 20 mg Documented by: Quetiapine Fumarate (Quetiapine Fumarate 50 Mg Tablet) 50 mg PO BEDTIME [facility] Last Admin: 01/20/21 20:23 Dose: 50 mg Documented by: Ropinirole HCl (Ropinirole Hcl 1 Mg Tablet) 1 mg PO BID [facility] Last Admin: 01/21/21 07:30 Dose: 1 mg Documented by: Trazodone HCl (Trazodone Hcl 50 Mg Tablet) 50 mg PO BEDTIME PRN PRN Reason: Insomnia Last Admin: 01/20/21 23:57 Dose: 50 mg Documented by: Allergies Allergies Allergy/AdvReac Type Severity Reaction Status Date / Time No Known Allergies Allergy Unverified 01/04/20 16:15 [No Known Allergies*] Mental Status Exam Mental Status Exam Narrative: A&O. unkempt appearance, in hospital attire, eating crackers in bed. Poor eye contact, attentive. No Tics or Tremors. No abnormal involuntary movements. Agitated, withdrawn, difficult to engage. Non-pressured speech, non-spontaneous with regular rate and rhythm, normal volume and prosody. No prolonged speech latency, mumbling, difficult to understand, appears to have some hearing loss. Mood is ?depressed,? affect is irritable. Denies SI/SIB/HI upon inquiry today. Denies A/VH or delusional thought content. Thoughts are coherent, organized but perseverative on wanting suboxone induction. No known cognitive or memory impairment. Insight/ Judgment fair and adequate. Assessment & Plan Assessment & Plan (1) Opioid use disorder: Status: Acute Code(s): F11.90 - Opioid use, unspecified, uncomplicated (2) MDD (major depressive disorder), recurrent episode, moderate: Status: Acute Code(s): F33.1 - Major depressive disorder, recurrent, moderate Assessment and Plan: Bulmaro is a 70 y.o. Who carries a dx of MDD, recurrent and opioid use disorder. He presented [place] [facility] [place] due to SI with plan to OD if he is not placed in detox today. He is presenting with sx of agitation, hopelessness, poor sleep, low energy, and reporting withdrawal sx. Will monitor COWS qshift. Asking for suboxone induction, prev on 8-2 mg film daily, last prescribed 11/2020. Last use of heroin was 01/18/2021 in afternoon, 10 bags IV. Plan: 1. Decrease klonopin to 0.5 mg TID due to risk of respiratory depression with buprenorphine 2. Decrease clonidine to 0.05 mg TID due to low blood pressure, reporting dizziness 3. start suboxone 2 mg film daily, consult to addiction placed 4. continue prozac 20 mg QD for sx of depression, anxiety 5. increase seroquel to 50 mg QHS for agitation, mood stability, anxiety, and poor sleep 6. Monitor response to medications. Monitor for safety in the milieu. Discharge on stabilization. Patient seen. Chart reviewed. Discussed with team. Obtain collateral contact info?as needed Reason for continued inpatient stay Substantial Risk for: harm to self, rapid decompensation and med/psych decompensation
[2021-01-20] MEDS: Buprenorphine/Naloxone 2/0.5mg FILM 1 FILM SUBLINGUAL (20:22)
[2021-01-20] MEDS: cloNIDine HCL 0.1 MG TABLET 0.05 MG PO (20:22)
[2021-01-20] MEDS: QUEtiapine Fumarate 50 MG TABLET PO (20:23)
[2021-01-20] MEDS: clonazePAM 0.5 MG TABLET PO (20:29)
[2021-01-20] MEDS: hydrOXYzine HCL 25 MG TABLET PO (23:57)
[2021-01-20] MEDS: traZODone HCL 50 MG TABLET PO (23:57)
[2021-01-21] MEDS: Acetaminophen 325 MG TABLET 650 MG PO (04:10)
[2021-01-21] MEDS: clonazePAM 0.5 MG TABLET PO ×2 (04:10→15:43)
[2021-01-21] MEDS: FLUoxetine HCl 20 MG CAPSULE PO (07:29)
[2021-01-21] MEDS: Buprenorphine/Naloxone 2/0.5mg FILM 1 FILM SUBLINGUAL (07:29)
[2021-01-21 07:30] VITALS: BP 125/78; PULSE 60
[2021-01-21] MEDS: rOPINIRole HCL 1 MG TABLET PO ×2 (07:30→20:52)
[2021-01-21] MEDS: Omeprazole 20 MG CAPSULE.DR PO (07:30)
[2021-01-21] MEDS: cloNIDine HCL 0.1 MG TABLET 0.05 MG PO ×3 (07:30→20:52)
[2021-01-21 07:39] VITALS: BP 125/78; PULSE 60; RESP 16; TEMP 36.7; O2SAT 99
[2021-01-21] MEDS: Buprenorphine/Naloxone 4/1 mg FILM 1 FILM SUBLINGUAL (13:39)
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
--- NOTE | 2021-01-21 15:13 | P.PNPSI_ITS ---
Subjective Subjective Date of Service: 01/21/21 Reason For Visit: suicidal ideation Subjective Notes: Conditional Voluntary Interim History: The nursing staff reported that the patient has been mostly in his room, isolative but cooperative with care. On interview with the social service agency director, he reported that he has been more depressed due to his chronic pain his past substance abuse. Consultation with Addiction Services were done and will titrate his Suboxone accordingly. He was concerned that chronic pain is not very well addressed with Suboxone so probably he will need a combination of pain management. He is able to contract for safety while he is here in the facility Mental Status Exam Mental Status Exam Patient Appearance: Disheveled and Unkempt Patient Orientation: Person and Situation Level of Consciousness: Awake Patient Behavior: Cooperative Mood Description: Depressed Affect Description: Constricted Patient Cognition Impaired: No Ability to Follow Directions: Good Speech Pattern: Clear Hallucinations: None Delusions: Not Present Thought Process: Goal Oriented and Linear Thought Content: positive for Circumstantial Judgement: Fair Diagnostics Vital Signs (24Hr): Vital Signs - 24 hr 01/20/21 16:33 01/20/21 19:55 01/20/21 20:22 Temperature 97.6 F 98.2 F Pulse Rate 61 86 86 Respiratory Rate 14 18 Blood Pressure 113/70 113/59 L 113/59 L Pulse Oximetry 96 99 01/21/21 07:30 01/21/21 07:39 Temperature 98.1 F Pulse Rate 60 60 Respiratory Rate 16 Blood Pressure 125/78 125/78 Pulse Oximetry 99 Body Mass Index 20.4 Labs Results: 01/18/21 17:44 01/18/21 17:44 Labs: Laboratory Results - last 48 hr 01/19/21 15:06 COVID-19 (JYOTI) Negative COVID-19 Clin Com See Note Medications Medications Current Medications Acetaminophen (Acetaminophen 325 Mg Tablet) 650 mg PO Q6H PRN PRN Reason: Headache/Pain Mild Scale (1-3) Last Admin: 01/21/21 04:10 Dose: 650 mg Documented by: Al Hydroxide/Mg Hydroxide (Magnesium Hydrox/Alum Hydrox 30 Ml Oral.Susp) 30 ml PO Q6H PRN PRN Reason: Heartburn/Nausea Clonazepam (Clonazepam 0.5 Mg Tablet) 0.5 mg PO TID PRN PRN Reason: Anxiety Last Admin: 01/21/21 04:10 Dose: 0.5 mg Documented by: Clonidine HCl (Clonidine Hcl 0.1 Mg Tablet) 0.05 mg PO TID [facility]; Protocol Last Admin: 01/21/21 07:30 Dose: 0.05 mg Documented by: Fluoxetine HCl (Fluoxetine Hcl 20 Mg Capsule) 20 mg PO DAILY [facility] Last Admin: 01/21/21 07:29 Dose: 20 mg Documented by: Hydroxyzine HCl (Hydroxyzine Hcl 25 Mg Tablet) 25 mg PO BEDTIME PRN PRN Reason: Anxiety Last Admin: 01/20/21 23:57 Dose: 25 mg Documented by: Magnesium Hydroxide (Milk Of Magnesia 30 Ml Oral.Susp) 30 ml PO DAILY PRN PRN Reason: Constipation Nicotine (Nicotine 14 Mg Patch.Td24) 14 mg TRANSDERMA DAILY [facility] Omeprazole (Omeprazole 20 Mg Capsule.Dr) 20 mg PO DAILY [facility] Last Admin: 01/21/21 07:30 Dose: 20 mg Documented by: Quetiapine Fumarate (Quetiapine Fumarate 50 Mg Tablet) 50 mg PO BEDTIME [facility] Last Admin: 01/20/21 20:23 Dose: 50 mg Documented by: Ropinirole HCl (Ropinirole Hcl 1 Mg Tablet) 1 mg PO BID [facility] Last Admin: 01/21/21 07:30 Dose: 1 mg Documented by: Trazodone HCl (Trazodone Hcl 50 Mg Tablet) 50 mg PO BEDTIME PRN PRN Reason: Insomnia Last Admin: 01/20/21 23:57 Dose: 50 mg Documented by: Allergies Allergies Allergy/AdvReac Type Severity Reaction Status Date / Time No Known Allergies Allergy Unverified 01/04/20 16:15 [No Known Allergies*] Assessment & Plan Assessment & Plan (1) Opioid use disorder: Status: Acute Code(s): F11.90 - Opioid use, unspecified, uncomplicated (2) MDD (major depressive disorder), recurrent episode, moderate: Status: Acute Code(s): F33.1 - Major depressive disorder, recurrent, moderate Assessment and Plan: Bulmaro is a 70 y.o. Who carries a dx of MDD, recurrent and opioid use disorder. He presented to [facility] 01/18/21 due to SI with plan to OD if he is not placed in detox today. He is presenting with sx of agitation, hopelessness, poor sleep, low energy, and reporting withdrawal sx. Will monitor COWS qshift. Asking for suboxone induction, prev on 8-2 mg film daily, last prescribed 11/2020. Last use of heroin was 01/18/2021 in afternoon, 10 bags IV. Plan: 1. At Remeron 15 mg p.o. q.h.s. to target insomnia and depression. 2. Addiction consult has suggested to use Suboxone 4 mg p.o. sublingual twice a day . 3. Gather collateral information Greater than 50% of the session was spent on counseling and/or coordination of care Reason for contiued inpatient stay Substantial Risk for: inability to function, rapid decompensation and med/psych decompensation
[2021-01-21 15:44] VITALS: BP 130/76; PULSE 68
[2021-01-21 18:00] VITALS: BP 122/56; PULSE 62; RESP 16; TEMP 36.7; O2SAT 99
[2021-01-21 19:30] VITALS: PULSE 61
[2021-01-21] MEDS: QUEtiapine Fumarate 50 MG TABLET PO (20:52)
[2021-01-21] MEDS: Mirtazapine 15 MG TABLET PO (20:52)
[2021-01-22] VITALS (9 sets, daily range): BP systolic 131–170; BP diastolic 64–81; PULSE 64–68; RESP 18; TEMP 36.7–37; O2SAT 18–98
--- NOTE | 2021-01-22 | ECG_ITS ---
Test Reason : chr chest pain Blood Pressure : / mmHG Vent. Rate : 066 BPM Atrial Rate : 066 BPM P-R Int : 160 ms QRS Dur : 092 ms QT Int : 392 ms P-R-T Axes : 061 026 056 degrees QTc Int : 410 ms Normal sinus rhythm Low voltage QRS Borderline ECG When compared with ECG of 18-JAN-2021 20:14, No significant change was found Referred By: Freddy Garcia Electronically Signed By:ROSARIO CASTELLON
[2021-01-22] MEDS: traZODone HCL 50 MG TABLET PO (00:02)
[2021-01-22] MEDS: FLUoxetine HCl 20 MG CAPSULE PO (08:33)
[2021-01-22] MEDS: Buprenorphine/Naloxone 4/1 mg FILM 1 FILM SUBLINGUAL ×2 (08:33→20:30)
[2021-01-22] MEDS: Nicotine 14 MG PATCH.TD24 TRANSDERMA (08:33)
[2021-01-22] MEDS: Omeprazole 20 MG CAPSULE.DR PO (08:34)
[2021-01-22] MEDS: rOPINIRole HCL 1 MG TABLET PO ×2 (08:34→20:32)
[2021-01-22] MEDS: cloNIDine HCL 0.1 MG TABLET 0.05 MG PO ×3 (08:35→20:30)
--- NOTE | 2021-01-22 11:46 | PC.NURSE ---
Patient is complaining of mouth pain as well as I have permanent implants. It is five teeth but they are all one piece. They are loose and they are not supposed to be. They hurt me and I am getting a nasty taste. I swallow that taste and now my stomach doesn't feel right . MD aware. Patient also stated that his right thumb was painful. Right Thumb was visible swollen. Patient stated I told the doctor about it and he was going to have blood work done . MD alerted.
[2021-01-22 12:15] LABS: MANUAL DIFF FLAG NO
[2021-01-22 12:17] LABS: Basophils Percent Auto 0.6 % (0-2); Eosinophils Absolute Auto 0.2 X10*3/uL (0.0-0.4); Eosinophils Percent Auto 3.3 % (0-4); Hematocrit 41.9 % (42-52); Imm Gran Abs Auto 0.01 X10*3/uL (0.00-0.03); Imm Gran Pct Auto 0.1 % (0.0-0.4); Lymphocytes Absolute Auto 3.1 X10*3/uL (1.2-4.9); Lymphocytes Percent Auto 45.4 % (20-40); Mean Corpuscular HGB Conc 33.4 g/dl (31.0-36.0); Mean Corpuscular Hemoglobin 29.7 pg (27.0-33.0); Mean Platelet Volume 10.1 fL (9.4-12.4); Monocytes Absolute Auto 0.5 X10*3/uL (0.1-1.2); Monocytes Percent Auto 7.5 % (2-11); Neutrophils Absolute Auto 2.9 X10*3/uL (2.0-8.3); Neutrophils Percent Auto 43.1 % (45-73); Platelet Count 252 X10*3/uL (160-400); Red Blood Count 4.71 X10*6/uL (4.60-5.80); White Blood Count 6.8 X10*3/uL (4.8-10.8)
--- NOTE | 2021-01-22 12:36 | MHC.RECOVRN ---
Met with pt to f/u after Suboxone initiation yesterday. Pt reports it was effective and treated withdrawal symptoms. Pt reports muscle/joint aches in legs as only withdrawal symptom currently. Pt would like to remain on 4mg/1mg BID Suboxone at this time. Pt unsure if he would like to continue outpatient. Discussed with Aniyah Wilson APRN. Will continue to follow.
--- NOTE | 2021-01-22 13:41 | HO.PSYCHPN ---
Subjective Subjective Date of Service: 01/22/21 Reason For Visit: suicidal ideation Subjective Notes: Conditional Voluntary Interim History: The nursing staff reported the patient has showed good appetite, he has a smoking cravings. Last night he slept poorly. Substance abuse services have contacted him and they were titrated treatment he has Suboxone. On interview, the patient denies new symptoms but he complains of poor sleep. At consult to the hospitalist was done and due to the possibility of cellulitis on his left hand. New blood work was ordered. A speech and Swallow consultation was already ordered today Medication Compliance: Yes Side effects from medications: No Review of Systems Acute medical concerns: Yes Medical Review of Systems: unchanged Mental Status Exam Mental Status Exam Patient Appearance: Unkempt Patient Orientation: Person Level of Consciousness: Awake Patient Behavior: Appropriate Mood Description: Constricted Affect Description: Depressed Patient Cognition Impaired: No Ability to Follow Directions: Good Speech Pattern: Clear Memory Description: Intact Hallucinations: None Delusions: Not Present Thought Process: Linear Thought Content: positive for Circumstantial Depressive Symptoms: Changes in Appetite and Significant Weight Loss Judgement: Fair Diagnostics Vital Signs (24Hr): Vital Signs - 24 hr 01/21/21 15:44 01/21/21 18:00 01/22/21 08:10 Temperature 98.0 F 98.1 F Pulse Rate 68 62 65 Respiratory Rate 16 18 Blood Pressure 130/76 122/56 L 170/81 H Pulse Oximetry 99 18 L 01/22/21 08:30 01/22/21 08:35 Temperature Pulse Rate 68 68 Respiratory Rate Blood Pressure 135/64 135/64 Pulse Oximetry Body Mass Index 20.4 Labs Results: 01/22/21 12:12 01/18/21 17:44 Labs: Laboratory Results - last 48 hr 01/22/21 12:12 WBC 6.8 RBC 4.71 Hgb 14.0 Hct 41.9 L MCV 89.0 MCH 29.7 MCHC 33.4 RDW 14.0 Plt Count 252 MPV 10.1 Immature Gran % (Auto) 0.1 Neut % (Auto) 43.1 L Lymph % (Auto) 45.4 H [place] % (Auto) 7.5 Eos % (Auto) 3.3 Baso % (Auto) 0.6 Lymph # (Auto) 3.1 [place] # (Auto) 0.5 Eos # (Auto) 0.2 Baso # (Auto) 0.0 Abs Immat Gran (auto) 0.01 Absolute Neuts (auto) 2.9 Absolute Nucleated RBC 0.000 Nucleated RBC % (auto) 0.0 Medications Medications Current Medications Acetaminophen (Acetaminophen 325 Mg Tablet) 650 mg PO Q6H PRN PRN Reason: Headache/Pain Mild Scale (1-3) Last Admin: 01/21/21 04:10 Dose: 650 mg Documented by: Al Hydroxide/Mg Hydroxide (Magnesium Hydrox/Alum Hydrox 30 Ml Oral.Susp) 30 ml PO Q6H PRN PRN Reason: Heartburn/Nausea Buprenorphine/Naloxone (Buprenorphine/Naloxone 4/1 Mg Film) 1 film SUBLINGUAL BID [facility] Last Admin: 01/22/21 08:33 Dose: 1 film Documented by: Clonazepam (Clonazepam 0.5 Mg Tablet) 0.5 mg PO TID PRN PRN Reason: Anxiety Last Admin: 01/21/21 15:43 Dose: 0.5 mg Documented by: Clonidine HCl (Clonidine Hcl 0.1 Mg Tablet) 0.05 mg PO TID [facility]; Protocol Last Admin: 01/22/21 08:35 Dose: 0.05 mg Documented by: Fluoxetine HCl (Fluoxetine Hcl 20 Mg Capsule) 20 mg PO DAILY [facility] Last Admin: 01/22/21 08:33 Dose: 20 mg Documented by: Hydroxyzine HCl (Hydroxyzine Hcl 25 Mg Tablet) 25 mg PO BEDTIME PRN PRN Reason: Anxiety Last Admin: 01/20/21 23:57 Dose: 25 mg Documented by: Magnesium Hydroxide (Milk Of Magnesia 30 Ml Oral.Susp) 30 ml PO DAILY PRN PRN Reason: Constipation Mirtazapine (Mirtazapine 15 Mg Tablet) 15 mg PO BEDTIME [facility] Last Admin: 01/21/21 20:52 Dose: 15 mg Documented by: Nicotine (Nicotine 14 Mg Patch.Td24) 14 mg TRANSDERMA DAILY [facility] Last Admin: 01/22/21 08:33 Dose: 14 mg Documented by: Omeprazole (Omeprazole 20 Mg Capsule.Dr) 20 mg PO DAILY [facility] Last Admin: 01/22/21 08:34 Dose: 20 mg Documented by: Quetiapine Fumarate (Quetiapine Fumarate 50 Mg Tablet) 50 mg PO BEDTIME [facility] Last Admin: 01/21/21 20:52 Dose: 50 mg Documented by: Ropinirole HCl (Ropinirole Hcl 1 Mg Tablet) 1 mg PO BID [facility] Last Admin: 01/22/21 08:34 Dose: 1 mg Documented by: Trazodone HCl (Trazodone Hcl 50 Mg Tablet) 50 mg PO BEDTIME PRN PRN Reason: Insomnia Last Admin: 01/22/21 00:02 Dose: 50 mg Documented by: Allergies Allergies Allergy/AdvReac Type Severity Reaction Status Date / Time No Known Allergies Allergy Unverified 01/04/20 16:15 [No Known Allergies*] Assessment & Plan Assessment & Plan (1) Opioid use disorder: Status: Acute Code(s): F11.90 - Opioid use, unspecified, uncomplicated Assessment and Plan: additional 4mg suboxone ordered for today 4mg BID ordered starting tomorrow will follow up to determine whether he wishes to continue or d/c prior to discharge Assessment and Plan: The patient is an elderly male with a past history of substance abuse who has been clean and sober for more than 30 years. He relapsed in the last 2 years on opioids after the diagnosis of throat cancer. Plan 1. Increase Remeron up to 30 mg p.o. q.h.s. to target insomnia and depression. 2. Continue same medications. 3. A consult to speech and swallow was done and they recommended to reassess after biopsy of the throat at the end of the month. Apparently, the patient does not want to participate on a special diet Greater than 50% of the session was spent on counseling and/or coordination of care Reason for contiued inpatient stay Substantial Risk for: harm to self, inability to function, rapid decompensation and med/psych decompensation
--- NOTE | 2021-01-22 13:51 | MHC.SL.SWA ---
Speech Pathologist Impression: Oralpharyngeal Dysphagia Esophageal Dysphagia Risk of Aspiration Due to: impaired insight re: safe swallowing Dysphasia Diet Status: Downgrade Liquid Consistency and Strategies for Safe Swallow: Liquid Intake Recommendation: Thin Liquid Intake Strategies: Small Sips No Straws Solid Food Consistency: Dietary Recommendations: Chopped/Advanced (NDD3) Additional Modifications to Solid Foods: - extra sauce/gravy on meat or other dry foods - aspiration precautions - supervision with PO intake - cuing for an upright posture when eating - remain upright 30-45 minutes following PO intake - alternation of liquids and solids Oral Medication Intake: Whole with Puree, large pills crushed in puree as needed Compensatory Strategies and Precautions to be Taken for Safe Swallow: Sitting Upright (90 deg) No Straw Liquids from Cup Alternate Liquids/Solids Rate of Ingestion Change Oral Check Supervision While Eating and Drinking for Safe Swallow: Intermittent Supervision Foods to Avoid: hard, dry, crunchy, or sticky foods Swallowing Recommended Treatments: Compens. Strategy Educat. Recommendation for Speech: Inpatient Speech Therapy Comment: Frequency/Duration: 1x/day during pt's hospitalization pending pt's cooperation Human Resources Coordinator Clinican/Clinical Fellow: No Supervisory Statement: I have reviewed and agree with the student/clinical fellow's documentation: N/A Speech Language Pathologist: Norma Smith M.A., CCC-MEDICAL PHYSICS RESEARCHER
--- NOTE | 2021-01-22 15:59 | PM.EVENT ---
Event Note Date of Service: 01/22/21 Event Note: S - Asked to see the patient to evaluate for cellulitis. Patient seen and examined in his room. He denies any fevers or chills. Reports no trauma to the bilateral UE. No redness, but reports it does feel warm. O vitals - last documented Gen - NAD, comfortable CVS - S1S2 Lungs - Clear Abd - soft, nt/nd; +BS Ext - RUE (hand) -- no erythema, warmth or major tenderness appreciated; R thumb swelling, ROM nearly full with no tenderness with ROM A/P 70 yo M whom the medical services are asked to evalute for cellulitis of the RUE (thumb region). At this time, no evidence of cellulitis He does have some swelling of the thumb joints -- denies any trauma Will get a XR of the hand -- if any significant abnormalities seen, would recommend to consult orthopedics / hand surgery. Does not need antibitoics. Can you tylenol/ibuprofen PRN pain -- although he does not report significant pain. Please re-consult as needed.
[2021-01-22] MEDS: Mirtazapine 30 MG TABLET PO (20:32)
[2021-01-22] MEDS: QUEtiapine Fumarate 50 MG TABLET PO (20:32)
[2021-01-23] MEDS: clonazePAM 0.5 MG TABLET PO ×3 (03:47→20:32)
[2021-01-23 06:00] VITALS: BP 114/69; PULSE 63; RESP 16; TEMP 36.3
[2021-01-23 06:34] LABS: Anion Gap 9 (12-20); Blood Urea Nitrogen 20 mg/dL (9-16); Carbon Dioxide 28 mmol/L (22-29); Chloride 108 mmol/L (96-108); Cholesterol 168 mg/dL; Creatinine Clr Calc Pharmacy 69.7; Estimated Glomerular Filt Rate > 60; Glucose Random 97 mg/dL (60-115); HDL Cholesterol 39 mg/dL; LDL Cholesterol Calculated 80 mg/dl; Potassium 4.2 mmol/L (3.3-5.1); Sodium 141 mmol/L (135-145); Triglycerides 247 mg/dL
[2021-01-23 06:41] LABS: Estimated Average Glucose 105 mg/dL; Hemoglobin A1c % 5.3 %
[2021-01-23 07:00] VITALS: BMI 20.8
[2021-01-23 08:37] VITALS: BP 110/62; PULSE 67
[2021-01-23] MEDS: rOPINIRole HCL 1 MG TABLET PO ×2 (08:37→20:22)
[2021-01-23] MEDS: Omeprazole 20 MG CAPSULE.DR PO (08:37)
[2021-01-23] MEDS: cloNIDine HCL 0.1 MG TABLET 0.05 MG PO ×3 (08:37→20:22)
[2021-01-23] MEDS: FLUoxetine HCl 20 MG CAPSULE PO (08:39)
[2021-01-23] MEDS: Buprenorphine/Naloxone 4/1 mg FILM 1 FILM SUBLINGUAL ×2 (08:40→20:22)
[2021-01-23] MEDS: Nicotine 14 MG PATCH.TD24 TRANSDERMA (08:42)
--- NOTE | 2021-01-23 11:16 | HO.PSYCHPN ---
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 The director social welfare talk with his brother who reported that he is going to have follow-up biopsy February 10. On interview, the patient reported that he slept much better with increase of Remeron. He still dysphoric and depressed but he is able to contract for safety. Even though, medically he is very sick. Medication Compliance: Yes Mental Status Exam Mental Status Exam Patient Appearance: Fatigued and Appropriate Patient Orientation: Person Level of Consciousness: Awake Patient Behavior: Cooperative and Passive Mood Description: Depressed Affect Description: Constricted Patient Cognition Impaired: No Ability to Follow Directions: Good Speech Pattern: Slurred (Coarse voice due to throat cancer) Memory Description: Intact Hallucinations: None Delusions: Not Present Thought Process: Linear Thought Content: positive for Intact and positive for Goal Oriented Depressive Symptoms: Sleeping More Than Usual and Significant Weight Loss Judgement: Fair Diagnostics Vital Signs (24Hr): Vital Signs - 24 hr 01/22/21 14:07 01/22/21 19:45 01/22/21 20:30 Temperature 98.6 F Pulse Rate 66 64 64 Respiratory Rate 18 Blood Pressure 140/68 H 131/74 131/74 Pulse Oximetry 98 01/23/21 06:00 01/23/21 08:37 Temperature 97.3 F Pulse Rate 63 67 Respiratory Rate 16 Blood Pressure 114/69 110/62 Pulse Oximetry Body Mass Index 20.4 Labs Results: 01/22/21 12:12 01/23/21 06:04 Labs: Laboratory Results - last 48 hr 01/22/21 01/23/21 01/23/21 12:12 06:04 06:04 WBC 6.8 RBC 4.71 Hgb 14.0 Hct 41.9 L MCV 89.0 MCH 29.7 MCHC 33.4 RDW 14.0 Plt Count 252 MPV 10.1 Immature Gran % (Auto) 0.1 Neut % (Auto) 43.1 L Lymph % (Auto) 45.4 H [place] % (Auto) 7.5 Eos % (Auto) 3.3 Baso % (Auto) 0.6 Lymph # (Auto) 3.1 [place] # (Auto) 0.5 Eos # (Auto) 0.2 Baso # (Auto) 0.0 Abs Immat Gran (auto) 0.01 Absolute Neuts (auto) 2.9 Absolute Nucleated RBC 0.000 Nucleated RBC % (auto) 0.0 Sodium 141 Potassium 4.2 Chloride 108 Carbon Dioxide 28 Anion Gap 9 L BUN 20 H D Creatinine 0.85 Estim Creat Clear Calc 69.7 Estimated GFR > 60 Random Glucose 97 Estimat Average Glucose 105 Hemoglobin A1c % 5.3 Calcium 9.0 Triglycerides 247 Cholesterol 168 LDL Cholesterol, Calc 80 HDL Cholesterol 39 Imaging Radiology Impressions: ITS Impressions Hand X-Ray 01/22/21 16:24 IMPRESSION: 1. Probable nondisplaced fracture through the radial aspect of the 1st distal phalanx which contacts the articular surface. 2. Possible mildly displaced fracture along the radial base of the 5th proximal phalanx. Correlate for focal tenderness. 3. Scattered degenerative arthritis. Medications Medications Current Medications Acetaminophen (Acetaminophen 325 Mg Tablet) 650 mg PO Q6H PRN PRN Reason: Headache/Pain Mild Scale (1-3) Last Admin: 01/21/21 04:10 Dose: 650 mg Documented by: Al Hydroxide/Mg Hydroxide (Magnesium Hydrox/Alum Hydrox 30 Ml Oral.Susp) 30 ml PO Q6H PRN PRN Reason: Heartburn/Nausea Buprenorphine/Naloxone (Buprenorphine/Naloxone 4/1 Mg Film) 1 film SUBLINGUAL BID [facility] Last Admin: 01/23/21 08:40 Dose: 1 film Documented by: Clonazepam (Clonazepam 0.5 Mg Tablet) 0.5 mg PO TID PRN PRN Reason: Anxiety Last Admin: 01/23/21 03:47 Dose: 0.5 mg Documented by: Clonidine HCl (Clonidine Hcl 0.1 Mg Tablet) 0.05 mg PO TID [facility]; Protocol Last Admin: 01/23/21 08:37 Dose: 0.05 mg Documented by: Fluoxetine HCl (Fluoxetine Hcl 20 Mg Capsule) 20 mg PO DAILY [facility] Last Admin: 01/23/21 08:39 Dose: 20 mg Documented by: Hydroxyzine HCl (Hydroxyzine Hcl 25 Mg Tablet) 25 mg PO BEDTIME PRN PRN Reason: Anxiety Last Admin: 01/20/21 23:57 Dose: 25 mg Documented by: Magnesium Hydroxide (Milk Of Magnesia 30 Ml Oral.Susp) 30 ml PO DAILY PRN PRN Reason: Constipation Mirtazapine (Mirtazapine 30 Mg Tablet) 30 mg PO BEDTIME [facility] Last Admin: 01/22/21 20:32 Dose: 30 mg Documented by: Nicotine (Nicotine 14 Mg Patch.Td24) 14 mg TRANSDERMA DAILY [facility] Last Admin: 01/23/21 08:42 Dose: 14 mg Documented by: Omeprazole (Omeprazole 20 Mg Capsule.Dr) 20 mg PO DAILY [facility] Last Admin: 01/23/21 08:37 Dose: 20 mg Documented by: Quetiapine Fumarate (Quetiapine Fumarate 50 Mg Tablet) 50 mg PO BEDTIME [facility] Last Admin: 01/22/21 20:32 Dose: 50 mg Documented by: Ropinirole HCl (Ropinirole Hcl 1 Mg Tablet) 1 mg PO BID [facility] Last Admin: 01/23/21 08:37 Dose: 1 mg Documented by: Trazodone HCl (Trazodone Hcl 50 Mg Tablet) 50 mg PO BEDTIME PRN PRN Reason: Insomnia Last Admin: 01/22/21 00:02 Dose: 50 mg Documented by: Allergies Allergies Allergy/AdvReac Type Severity Reaction Status Date / Time No Known Allergies Allergy Unverified 01/04/20 16:15 [No Known Allergies*] Assessment & Plan Assessment & Plan (1) Opioid use disorder: Status: Acute Code(s): F11.90 - Opioid use, unspecified, uncomplicated Assessment and Plan: additional 4mg suboxone ordered for today 4mg BID ordered starting tomorrow will follow up to determine whether he wishes to continue or d/c prior to discharge Assessment and Plan: The patient is an elderly male with a past history of substance abuse who has been clean and sober for more than 30 years. He relapsed in the last 2 years on opioids after the diagnosis of throat cancer. Plan 1. Keep Remeron up to 30 mg p.o. q.h.s. to target insomnia and depression. 2. Continue same medications. 3. A consult to speech and swallow was done and they recommended to reassess after biopsy of the throat at the end of the month. Apparently, the patient does not want to participate on a special diet. 4. We ordered a hospitalist consult but over the communications of work, they suggested to continue pain management, they refused to see him at this moment sings they do not see any active medical problems to be addressed right now. Greater than 50% of the session was spent on counseling and/or coordination of care Reason for contiued inpatient stay Substantial Risk for: harm to self, inability to function, rapid decompensation and med/psych decompensation
--- NOTE | 2021-01-23 14:20 | MHC.SL.SWA ---
Speech Pathologist Impression: Oralpharyngeal Dysphagia Esophageal Dysphagia Dysphasia Diet Status: No Change Liquid Consistency and Strategies for Safe Swallow: Liquid Intake Recommendation: Thin Liquid Intake Strategies: Small Sips No Straws Solid Food Consistency: Dietary Recommendations: Chopped/Advanced (NDD3) Additional Modifications to Solid Foods: Patient is recommended CHOPPED/ADVANCED solids (NDD3), THIN liquids, and pills WHOLE in PUREE. Patient declines having modified diet and prefers to continue with REGULAR solids, though rationale for modified diet was explained on 01/22 and 01/23. Recommend patient to self-select food items and avoid tough, sticky, dry, or crunchy/crumbly foods. Recommend food to be cut up into small bite size pieces and served with sauce/gravy whenever possible. Recommend following precautions: -upright seating during and for at least 30-45 minutes after PO intake -small bites of food, chew food well -moisten food with sauces/gravies -alternate bite of food with sip of liquid -small sips of liquid -avoid consecutive sipping or chugging Oral Medication Intake: Whole with Puree Compensatory Strategies and Precautions to be Taken for Safe Swallow: Sitting Upright (90 deg) Small Bites and Sips Alternate Liquids/Solids Rate of Ingestion Change Avoid Specific Foods Supervision While Eating and Drinking for Safe Swallow: Total Supervision (1:1) Foods to Avoid: hard, dry, crunchy, or sticky foods Swallowing Recommended Treatments: Compens. Strategy Educat. Recommendation for Speech: Inpatient Speech Therapy BUSINESS ANALYST [employer] will continue to follow if pt allows. Frequency/Duration: 1x/day during pt's hospitalization pending pt's cooperation Machine Precision Engraver Clinican/Clinical Fellow: Yes: Macy Card Supervisory Statement: I have reviewed and agree with the student/clinical fellow's documentation: Yes Speech Language Pathologist: Natalia Tobar M.A., [facility]-BUSINESS ANALYST [employer]
[2021-01-23 14:58] VITALS: BP 139/80; PULSE 71
[2021-01-23 18:00] VITALS: BP 108/67; PULSE 69; RESP 16; TEMP 36.1; O2SAT 97
[2021-01-23 20:22] VITALS: BP 100/59; PULSE 69
[2021-01-23] MEDS: QUEtiapine Fumarate 50 MG TABLET PO (20:22)
[2021-01-23] MEDS: Mirtazapine 30 MG TABLET PO (20:22)
[2021-01-23 20:48] VITALS: PULSE 69
[2021-01-24 05:28] VITALS: PULSE 72
[2021-01-24 06:00] VITALS: BP 96/64; PULSE 95; TEMP 36.4; O2SAT 95
[2021-01-24 09:52] VITALS: BP 100/64; PULSE 64
[2021-01-24] MEDS: rOPINIRole HCL 1 MG TABLET PO ×2 (09:52→20:05)
[2021-01-24] MEDS: cloNIDine HCL 0.1 MG TABLET 0.05 MG PO ×3 (09:52→20:01)
[2021-01-24] MEDS: Buprenorphine/Naloxone 4/1 mg FILM 1 FILM SUBLINGUAL ×2 (09:52→20:06)
[2021-01-24] MEDS: Omeprazole 20 MG CAPSULE.DR PO (09:52)
[2021-01-24] MEDS: FLUoxetine HCl 20 MG CAPSULE PO (09:52)
--- NOTE | 2021-01-24 11:00 | MHC.SL.DTX ---
Pre-Treatment Diet: Patient was seen by NET UI DEVELOPER for bedside PO trials on 01/22/21. Patient was recommended CHOPPED/ADVANCED (NDD3) solids and THIN liquids. Patient declined modified diet at that time and continues to decline diet consistency modifications. Subjective: Changes made to current diet?: No: No Change Dysphasia Diet Status: Downgrade Liquid Consistency and Strategies: Liquid Intake Recommendation: Thin Compensatory Strategies for Safe Swallow: Small Sips No Straws Compensatory Strategies for Safe Swallow(b): Sitting Upright (90 deg) Small Bites and Sips Alternate Liquids/Solids Rate of Ingestion Change Avoid Specific Foods Solid Food Consistency: Dietary Recommendations: Chopped/Advanced (NDD3) Additional Modifications to Solids: Patient is recommended CHOPPED/ADVANCED solids (NDD3), THIN liquids, and pills WHOLE in PUREE. Patient declines having modified diet and prefers to continue with REGULAR solids, though rationale for modified diet was explained on 01/22, 01/23, and 01/24. Recommend patient to self-select food items and avoid tough, sticky, dry, or crunchy/crumbly foods. Recommend food to be cut up into small bite size pieces and served with sauce/gravy whenever possible. Recommend following precautions: -upright seating during and for at least 30-45 minutes after PO intake -small bites of food, chew food well -moisten food with sauces/gravies -alternate bite of food with sip of liquid -small sips of liquid -avoid consecutive sipping or chugging Oral Medication Intake: Whole with Puree Strategies and Precautions to be Taken for Safe Swallow: Compensatory Swallowing Status: Sitting Upright (90 deg) Small Bites and Sips Alternate Liquids/Solids Rate of Ingestion Change Avoid Specific Foods Supervision While Eating and/Drinking: Total Supervision (1:1) Foods to Avoid: hard, dry, crunchy, or sticky foods Swallowing Recommended Treatments: Compens. Strategy Educat. Level of Impact on: Daily activities: Severe Interpersonal interactions: Severe Education: Employment: Community: Severe Prognosis for Improvement: Fair Recommendation for Speech: Inpatient Speech Therapy Comment: Pt was seen for a bedside swallow evaluation 01/22. He reported globus sensation at the upper esophageal level during PO intake at times, at the same location he reported having been diagnosed with cancer. Pt denied any instances of globus sensation or odynophagia during the assessment but demonstrated a prolonged oral phase and delayed swallow trigger with intake of regular consistency solids. Pt with missing dentition and reported having dentures at home. Pt was also observed to suddenly lay flat in bed during PO intake. Pt will require aspiration precautions and supervision during PO intake to ensure safety. Despite education, pt declined the recommendation for NDD3 CHOPPED/ADVANCED solids. RN and MD were notified via secure [place] text. MD was also notified of the recommendation for an outpatient barium swallow and/or modified barium swallow to further assess pt's esophageal and swallow function pending his cooperation. These procedures may be best appropriate following pt's biopsy planned for later in the month, pending the results and plan. NET UI DEVELOPER will continue to follow if pt allows. Frequency/Duration: 1x/day during pt's hospitalization pending pt's cooperation Date Range for Service Req: Timeline to reassess: Additional Comments: Patient speaks with low volume and displays hoarse vocal quality. Patient reports seeing ENT for vocal hoarseness 2 years ago. At that time, patient was diagnosed with upper esophageal cancer. Patient denies having chemotherapy or radiation therapy per MD note. ? of vocal fold paralysis. Patient reports right side throat pain and food feeling stuck when eating. Patient is scheduled for throat biopsy at the end of the month. After biopsy, patient is recommended barium swallow or MBSS. Treatment: Pt was seen for dysphagia treatment while laying down in his bed. Pt declined PO trials this date. He reported having dugan's pie for dinner last night and oatmeal this morning for breakfast, both of which he denied difficulty swallowing. He stated I just chew it well and carefully . Reviewed safe and compensatory swallowing strategies: - sitting upright at 90 degrees during all PO intake - remaining upright 30 minutes post PO intake - small bites and sips - alternate liquids and solids - utilize additional liquid washes should globus sensation occur - use of extra sauce/gravy on tougher foods such as meat - avoidance of dry, crunchy, or sticky foods Pt reported understanding of the strategies discussed. He continued to decline the recommendation for NDD3 CHOPPED solids. Further ST is not warranted at this time, as pt has been able to recall/report using safe and compensatory swallowing strategies. NET UI DEVELOPER to be re-referred should any changes be noted. Drug Abuse Counselor Clinican/Clinical Fellow: No Supervisory Statement: I have reviewed and agree with the student/clinical fellow's documentation: N/A Speech Language Pathologist: Norma Smith M.A., [facility]-NET UI DEVELOPER
--- NOTE | 2021-01-24 16:49 | HO.PSYCHPN ---
Subjective Subjective Date of Service: 01/24/21 Reason For Visit: suicidal ideation Guardianship: No Interim History: Patient isolated anxious depressed hopeless despondent and isolating. Patient has been preoccupied with or his future or has been started on Suboxone Mental Status Exam Mental Status Exam Patient Appearance: Fatigued and Appropriate Patient Orientation: Person Level of Consciousness: Awake Patient Behavior: Cooperative and Passive Mood Description: Depressed, Labile, Sad and Apprehensive Affect Description: Constricted Patient Cognition Impaired: No Ability to Follow Directions: Good Speech Pattern: Slurred (Coarse voice due to throat cancer) Memory Description: Intact Hallucinations: None Delusions: Not Present Thought Process: Linear Thought Content: positive for Intact and positive for Goal Oriented Depressive Symptoms: Sleeping More Than Usual and Significant Weight Loss Judgement: Fair Diagnostics Vital Signs (24Hr): Vital Signs - 24 hr 01/23/21 18:00 01/23/21 20:22 01/24/21 06:00 Temperature 96.9 F 97.5 F Pulse Rate 69 69 95 Respiratory Rate 16 Blood Pressure 108/67 100/59 L 96/64 Pulse Oximetry 97 95 01/24/21 09:52 Temperature Pulse Rate 64 Respiratory Rate Blood Pressure 100/64 Pulse Oximetry Body Mass Index 20.8 Labs Results: 01/22/21 12:12 01/23/21 06:04 Labs: Laboratory Results - last 48 hr 01/23/21 01/23/21 06:04 06:04 Sodium 141 Potassium 4.2 Chloride 108 Carbon Dioxide 28 Anion Gap 9 L BUN 20 H D Creatinine 0.85 Estim Creat Clear Calc 69.7 Estimated GFR > 60 Random Glucose 97 Estimat Average Glucose 105 Hemoglobin A1c % 5.3 Calcium 9.0 Triglycerides 247 Cholesterol 168 LDL Cholesterol, Calc 80 HDL Cholesterol 39 Imaging Radiology Impressions: ITS Impressions Hand X-Ray 01/22/21 16:24 IMPRESSION: 1. Probable nondisplaced fracture through the radial aspect of the 1st distal phalanx which contacts the articular surface. 2. Possible mildly displaced fracture along the radial base of the 5th proximal phalanx. Correlate for focal tenderness. 3. Scattered degenerative arthritis. Medications Medications Current Medications Acetaminophen (Acetaminophen 325 Mg Tablet) 650 mg PO Q6H PRN PRN Reason: Headache/Pain Mild Scale (1-3) Last Admin: 01/21/21 04:10 Dose: 650 mg Documented by: Al Hydroxide/Mg Hydroxide (Magnesium Hydrox/Alum Hydrox 30 Ml Oral.Susp) 30 ml PO Q6H PRN PRN Reason: Heartburn/Nausea Buprenorphine/Naloxone (Buprenorphine/Naloxone 4/1 Mg Film) 1 film SUBLINGUAL BID [facility] Last Admin: 01/24/21 09:52 Dose: 1 film Documented by: Clonazepam (Clonazepam 0.5 Mg Tablet) 0.5 mg PO TID PRN PRN Reason: Anxiety Last Admin: 01/23/21 20:32 Dose: 0.5 mg Documented by: Clonidine HCl (Clonidine Hcl 0.1 Mg Tablet) 0.05 mg PO TID [facility]; Protocol Last Admin: 01/24/21 09:52 Dose: 0.05 mg Documented by: Fluoxetine HCl (Fluoxetine Hcl 20 Mg Capsule) 20 mg PO DAILY [facility] Last Admin: 01/24/21 09:52 Dose: 20 mg Documented by: Hydroxyzine HCl (Hydroxyzine Hcl 25 Mg Tablet) 25 mg PO BEDTIME PRN PRN Reason: Anxiety Last Admin: 01/20/21 23:57 Dose: 25 mg Documented by: Magnesium Hydroxide (Milk Of Magnesia 30 Ml Oral.Susp) 30 ml PO DAILY PRN PRN Reason: Constipation Mirtazapine (Mirtazapine 30 Mg Tablet) 30 mg PO BEDTIME [facility] Last Admin: 01/23/21 20:22 Dose: 30 mg Documented by: Nicotine (Nicotine 14 Mg Patch.Td24) 14 mg TRANSDERMA DAILY [facility] Last Admin: 01/24/21 14:07 Dose: Not Given Documented by: Omeprazole (Omeprazole 20 Mg Capsule.Dr) 20 mg PO DAILY [facility] Last Admin: 01/24/21 09:52 Dose: 20 mg Documented by: Quetiapine Fumarate (Quetiapine Fumarate 50 Mg Tablet) 50 mg PO BEDTIME [facility] Last Admin: 01/23/21 20:22 Dose: 50 mg Documented by: Quetiapine Fumarate (Quetiapine Fumarate 25 Mg Tablet) 25 mg PO DAILY [facility] Ropinirole HCl (Ropinirole Hcl 1 Mg Tablet) 1 mg PO BID [facility] Last Admin: 01/24/21 09:52 Dose: 1 mg Documented by: Trazodone HCl (Trazodone Hcl 50 Mg Tablet) 50 mg PO BEDTIME PRN PRN Reason: Insomnia Last Admin: 01/22/21 00:02 Dose: 50 mg Documented by: Allergies Allergies Allergy/AdvReac Type Severity Reaction Status Date / Time No Known Allergies Allergy Unverified 01/04/20 16:15 [No Known Allergies*] Assessment & Plan Assessment & Plan (1) Opioid use disorder: Status: Acute Code(s): F11.90 - Opioid use, unspecified, uncomplicated Assessment and Plan: Continue Suboxone 4 mg b.i.d. appears to be helping with cravings Assessment and Plan: The patient is an elderly male with a past history of substance abuse who has been clean and sober for more than 30 years. He relapsed in the last 2 years on opioids after the diagnosis of throat cancer. Plan 1. Keep Remeron up to 30 mg p.o. q.h.s. to target insomnia and depression. 2. Continue same medications. 3. A consult to speech and swallow was done and they recommended to reassess after biopsy of the throat at the end of the month. Apparently, the patient does not want to participate on a special diet. Seroquel 50 mg bedtime help with sleep she help with depression and 25 mg in the a.m. for anxiety and depressive symptoms patient continues to be intermittently hopeless helpless with thoughts that he may be better off Greater than 50% of the session was spent on counseling and/or coordination of care Reason for contiued inpatient stay Substantial Risk for: harm to self and rapid decompensation
[2021-01-24 18:00] VITALS: BP 111/58; PULSE 74; RESP 18; TEMP 36.4; O2SAT 96
[2021-01-24] MEDS: clonazePAM 0.5 MG TABLET PO (18:21)
[2021-01-24 20:01] VITALS: BP 111/58; PULSE 74
[2021-01-24] MEDS: Mirtazapine 30 MG TABLET PO (20:06)
[2021-01-24] MEDS: QUEtiapine Fumarate 50 MG TABLET PO (20:06)
[2021-01-25 08:47] VITALS: BP 113/62; PULSE 66; RESP 17; TEMP 36.6; O2SAT 96
[2021-01-25] MEDS: Nicotine 14 MG PATCH.TD24 TRANSDERMA (08:55)
[2021-01-25 08:56] VITALS: BP 113/62; PULSE 66
[2021-01-25] MEDS: rOPINIRole HCL 1 MG TABLET PO ×2 (08:56→20:05)
[2021-01-25] MEDS: QUEtiapine Fumarate 25 MG TABLET PO (08:56)
[2021-01-25] MEDS: cloNIDine HCL 0.1 MG TABLET 0.05 MG PO ×2 (08:56→20:03)
[2021-01-25] MEDS: Omeprazole 20 MG CAPSULE.DR PO (08:56)
[2021-01-25] MEDS: FLUoxetine HCl 20 MG CAPSULE PO (08:56)
[2021-01-25] MEDS: Buprenorphine/Naloxone 4/1 mg FILM 1 FILM SUBLINGUAL ×2 (08:59→20:05)
--- NOTE | 2021-01-25 13:55 | HO.PSYCHPN ---
Subjective Subjective Date of Service: 01/25/21 Reason For Visit: suicidal ideation Interim History: pt reports he's depressed but denies any SI. He says i feel safe here... Patient reports he can't go back to his housing since he was kicked out for relapse and says i upset everyone. He reports being anxious saying he's not sure what's in store for him refering to housing but also to his cancer diagnosis. Discussed meds and pt said to leave prozac at current dose. Mental Status Exam Mental Status Exam Narrative: Patient Appearance:?Fatigued and Appropriate Patient Orientation:?Person Level of Consciousness:?Awake Patient Behavior:?Cooperative and Passive Mood Description:?Depressed Affect Description:?Constricted Patient Cognition Impaired:?No Ability to Follow Directions:?Good Speech Pattern:?Slurred (Coarse voice due to throat cancer) Memory Description:?Intact Hallucinations:?None Delusions:?Not Present Thought Process:?Linear Thought Content:?positive for Intact and positive for Goal Oriented; denies SI/HI Depressive Symptoms:?Sleeping More Than Usual and Significant Weight Loss Judgment:?Fair Diagnostics Vital Signs (24Hr): Vital Signs - 24 hr 01/24/21 18:00 01/24/21 20:01 01/25/21 08:47 Temperature 97.5 F 97.9 F Pulse Rate 74 74 66 Respiratory Rate 18 17 Blood Pressure 111/58 L 111/58 L 113/62 Pulse Oximetry 96 96 01/25/21 08:56 Temperature Pulse Rate 66 Respiratory Rate Blood Pressure 113/62 Pulse Oximetry Body Mass Index 20.8 Labs Results: 01/22/21 12:12 01/23/21 06:04 Imaging Radiology Impressions: ITS Impressions Hand X-Ray 01/22/21 16:24 IMPRESSION: 1. Probable nondisplaced fracture through the radial aspect of the 1st distal phalanx which contacts the articular surface. 2. Possible mildly displaced fracture along the radial base of the 5th proximal phalanx. Correlate for focal tenderness. 3. Scattered degenerative arthritis. Medications Medications Current Medications Acetaminophen (Acetaminophen 325 Mg Tablet) 650 mg PO Q6H PRN PRN Reason: Headache/Pain Mild Scale (1-3) Last Admin: 01/21/21 04:10 Dose: 650 mg Documented by: Al Hydroxide/Mg Hydroxide (Magnesium Hydrox/Alum Hydrox 30 Ml Oral.Susp) 30 ml PO Q6H PRN PRN Reason: Heartburn/Nausea Buprenorphine/Naloxone (Buprenorphine/Naloxone 4/1 Mg Film) 1 film SUBLINGUAL BID [facility] Last Admin: 01/25/21 08:59 Dose: 1 film Documented by: Clonazepam (Clonazepam 0.5 Mg Tablet) 0.5 mg PO TID PRN PRN Reason: Anxiety Last Admin: 01/24/21 18:21 Dose: 0.5 mg Documented by: Clonidine HCl (Clonidine Hcl 0.1 Mg Tablet) 0.05 mg PO TID [facility]; Protocol Last Admin: 01/25/21 08:56 Dose: 0.05 mg Documented by: Fluoxetine HCl (Fluoxetine Hcl 20 Mg Capsule) 20 mg PO DAILY [facility] Last Admin: 01/25/21 08:56 Dose: 20 mg Documented by: Hydroxyzine HCl (Hydroxyzine Hcl 25 Mg Tablet) 25 mg PO BEDTIME PRN PRN Reason: Anxiety Last Admin: 01/20/21 23:57 Dose: 25 mg Documented by: Magnesium Hydroxide (Milk Of Magnesia 30 Ml Oral.Susp) 30 ml PO DAILY PRN PRN Reason: Constipation Mirtazapine (Mirtazapine 30 Mg Tablet) 30 mg PO BEDTIME [facility] Last Admin: 01/24/21 20:06 Dose: 30 mg Documented by: Nicotine (Nicotine 14 Mg Patch.Td24) 14 mg TRANSDERMA DAILY [facility] Last Admin: 01/25/21 08:55 Dose: 14 mg Documented by: Omeprazole (Omeprazole 20 Mg Capsule.Dr) 20 mg PO DAILY [facility] Last Admin: 01/25/21 08:56 Dose: 20 mg Documented by: Quetiapine Fumarate (Quetiapine Fumarate 50 Mg Tablet) 50 mg PO BEDTIME [facility] Last Admin: 01/24/21 20:06 Dose: 50 mg Documented by: Quetiapine Fumarate (Quetiapine Fumarate 25 Mg Tablet) 25 mg PO DAILY [facility] Last Admin: 01/25/21 08:56 Dose: 25 mg Documented by: Ropinirole HCl (Ropinirole Hcl 1 Mg Tablet) 1 mg PO BID [facility] Last Admin: 01/25/21 08:56 Dose: 1 mg Documented by: Trazodone HCl (Trazodone Hcl 50 Mg Tablet) 50 mg PO BEDTIME PRN PRN Reason: Insomnia Last Admin: 01/22/21 00:02 Dose: 50 mg Documented by: Allergies Allergies Allergy/AdvReac Type Severity Reaction Status Date / Time No Known Allergies Allergy Unverified 01/04/20 16:15 [No Known Allergies*] Assessment & Plan Assessment & Plan (1) Opioid use disorder: Status: Acute Code(s): F11.90 - Opioid use, unspecified, uncomplicated Assessment and Plan: Continue Suboxone 4 mg b.i.d. 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 He relapsed in the last 2 years on opioids after the diagnosis of throat cancer. Plan 1. Keep Remeron up to 30 mg p.o. q.h.s. to target insomnia and depression. 2. Continue same medications. 3. A consult to speech and swallow was done and they recommended to reassess after biopsy of the throat at the end of the month. Apparently, the patient does not want to participate on a special diet. Seroquel 50 mg bedtime help with sleep she help with depression and 25 mg in the a.m. for anxiety and depressive symptoms patient continues to be intermittently hopeless helpless with thoughts that he may be better off Greater than 50% of the session was spent on counseling and/or coordination of care Reason for contiued inpatient stay Substantial Risk for: med/psych decompensation
[2021-01-25] MEDS: clonazePAM 0.5 MG TABLET PO (15:28)
[2021-01-25 18:00] VITALS: BP 108/61; PULSE 72; RESP 18; TEMP 36.6; O2SAT 98
[2021-01-25 20:03] VITALS: BP 108/61; PULSE 72
[2021-01-25] MEDS: Mirtazapine 30 MG TABLET PO (20:03)
[2021-01-25] MEDS: QUEtiapine Fumarate 50 MG TABLET PO (20:05)
[2021-01-26 06:00] VITALS: BP 120/63; PULSE 79; RESP 16; TEMP 36.6; O2SAT 96
[2021-01-26 08:36] VITALS: BP 120/63; PULSE 74
[2021-01-26] MEDS: rOPINIRole HCL 1 MG TABLET PO ×2 (08:36→20:19)
[2021-01-26] MEDS: cloNIDine HCL 0.1 MG TABLET 0.05 MG PO ×3 (08:36→20:19)
[2021-01-26] MEDS: FLUoxetine HCl 20 MG CAPSULE PO (08:36)
[2021-01-26] MEDS: QUEtiapine Fumarate 25 MG TABLET PO (08:37)
[2021-01-26] MEDS: Omeprazole 20 MG CAPSULE.DR PO (08:37)
[2021-01-26] MEDS: Buprenorphine/Naloxone 4/1 mg FILM 1 FILM SUBLINGUAL ×2 (08:37→20:19)
[2021-01-26 16:14] VITALS: BP 122/81; PULSE 84
[2021-01-26] MEDS: clonazePAM 0.5 MG TABLET PO (16:19)
[2021-01-26 20:10] VITALS: BP 119/67; PULSE 79; RESP 18; TEMP 36.4; O2SAT 97
[2021-01-26 20:19] VITALS: BP 119/67; PULSE 79
[2021-01-26] MEDS: Mirtazapine 30 MG TABLET PO (20:19)
[2021-01-26] MEDS: QUEtiapine Fumarate 50 MG TABLET PO (20:19)
[2021-01-27 08:45] VITALS: BP 115/61; PULSE 74
[2021-01-27] MEDS: FLUoxetine HCl 20 MG CAPSULE PO (08:45)
[2021-01-27] MEDS: cloNIDine HCL 0.1 MG TABLET 0.05 MG PO ×3 (08:45→20:49)
[2021-01-27] MEDS: Omeprazole 20 MG CAPSULE.DR PO (08:50)
[2021-01-27] MEDS: Buprenorphine/Naloxone 4/1 mg FILM 1 FILM SUBLINGUAL (08:51)
[2021-01-27] MEDS: rOPINIRole HCL 1 MG TABLET PO ×2 (08:51→20:49)
[2021-01-27] MEDS: QUEtiapine Fumarate 25 MG TABLET PO (08:51)
[2021-01-27 15:49] VITALS: BMI 20.8
[2021-01-27] MEDS: clonazePAM 0.5 MG TABLET PO (15:55)
--- NOTE | 2021-01-27 15:59 | MHC.CLN ---
NUTRITION AT NUTRITIONAL RISK DUE TO CURRENT WEIGHT IS 89% OF IBW. PATIENT AGREES TO ENSURE TID, PROVIDING 1050 KCAL, 60 G PROTEIN. SEE CLINICAL NUTRITION ASSESSMENT.
[2021-01-27 18:00] VITALS: BP 101/65; PULSE 84; RESP 16; TEMP 37.1; O2SAT 96
[2021-01-27 20:49] VITALS: BP 101/65; PULSE 84
[2021-01-27] MEDS: Buprenorphine/Naloxone 2/0.5mg FILM 1 FILM SUBLINGUAL (20:49)
[2021-01-27] MEDS: QUEtiapine Fumarate 50 MG TABLET PO (20:49)
[2021-01-27] MEDS: Mirtazapine 30 MG TABLET PO (20:49)
--- NOTE | 2021-01-27 21:59 | P.PNPSI_ITS ---
Subjective Subjective Date of Service: 01/26/21 Reason For Visit: suicidal ideation Interim History: seen on 01/26 pt reports mood is better and he says i feel brighter today.. however he reports he remains anxious about discharge, worried about relapse; denies SI/HI. Pt does not want meds changed other than to start lowering Suboxone dose saying he needs to be off it and w/out w/drawal symptoms prior to discharge or else he'll be since he'll relapse. Pt does not want to be on suboxone since he feels it alters his cognition some and he just wants to be himself; does not want naltrexone/vivitrol incase he needs pain meds in the future. pt Mental Status Exam Mental Status Exam Narrative: Patient Appearance:?Fatigued and Appropriate Patient Orientation:?Person Level of Consciousness:?Awake Patient Behavior:?Cooperative and Passive Mood Description:?anxious Affect Description:?constricted but brighter Patient Cognition Impaired:?No Ability to Follow Directions:?Good Speech Pattern:?Coarse and soft voice due to throat cancer but regular rate Memory Description:?Intact Hallucinations:?None Delusions:?Not Present Thought Process:?Linear Thought Content:?positive for Intact and positive for Goal Oriented; denies SI/HI Judgment:?Fair Diagnostics Vital Signs (24Hr): Vital Signs - 24 hr 01/27/21 08:45 01/27/21 18:00 01/27/21 20:49 Temperature 98.7 F Pulse Rate 74 84 84 Respiratory Rate 16 Blood Pressure 115/61 101/65 101/65 Pulse Oximetry 96 Body Mass Index 20.8 Labs Results: 01/22/21 12:12 01/23/21 06:04 Imaging Radiology Impressions: ITS Impressions Hand X-Ray 01/22/21 16:24 IMPRESSION: 1. Probable nondisplaced fracture through the radial aspect of the 1st distal phalanx which contacts the articular surface. 2. Possible mildly displaced fracture along the radial base of the 5th proximal phalanx. Correlate for focal tenderness. 3. Scattered degenerative arthritis. Medications Medications Current Medications Acetaminophen (Acetaminophen 325 Mg Tablet) 650 mg PO Q6H PRN PRN Reason: Headache/Pain Mild Scale (1-3) Last Admin: 01/21/21 04:10 Dose: 650 mg Documented by: Al Hydroxide/Mg Hydroxide (Magnesium Hydrox/Alum Hydrox 30 Ml Oral.Susp) 30 ml PO Q6H PRN PRN Reason: Heartburn/Nausea Buprenorphine/Naloxone (Buprenorphine/Naloxone 2/0.5mg Film) 1 film SUBLINGUAL BID [facility] Last Admin: 01/27/21 20:49 Dose: 1 film Documented by: Clonazepam (Clonazepam 0.5 Mg Tablet) 0.5 mg PO TID PRN PRN Reason: Anxiety Last Admin: 01/27/21 15:55 Dose: 0.5 mg Documented by: Clonidine HCl (Clonidine Hcl 0.1 Mg Tablet) 0.05 mg PO TID [facility]; Protocol Last Admin: 01/27/21 20:49 Dose: 0.05 mg Documented by: Fluoxetine HCl (Fluoxetine Hcl 20 Mg Capsule) 20 mg PO DAILY [facility] Last Admin: 01/27/21 08:45 Dose: 20 mg Documented by: Hydroxyzine HCl (Hydroxyzine Hcl 25 Mg Tablet) 25 mg PO BEDTIME PRN PRN Reason: Anxiety Last Admin: 01/20/21 23:57 Dose: 25 mg Documented by: Magnesium Hydroxide (Milk Of Magnesia 30 Ml Oral.Susp) 30 ml PO DAILY PRN PRN Reason: Constipation Mirtazapine (Mirtazapine 30 Mg Tablet) 30 mg PO BEDTIME [facility] Last Admin: 01/27/21 20:49 Dose: 30 mg Documented by: Nicotine (Nicotine 14 Mg Patch.Td24) 14 mg TRANSDERMA DAILY [facility] Last Admin: 01/27/21 11:13 Dose: Not Given Documented by: Omeprazole (Omeprazole 20 Mg Capsule.Dr) 20 mg PO DAILY [facility] Last Admin: 01/27/21 08:50 Dose: 20 mg Documented by: Quetiapine Fumarate (Quetiapine Fumarate 50 Mg Tablet) 50 mg PO BEDTIME [facility] Last Admin: 01/27/21 20:49 Dose: 50 mg Documented by: Quetiapine Fumarate (Quetiapine Fumarate 25 Mg Tablet) 25 mg PO DAILY [facility] Last Admin: 01/27/21 08:51 Dose: 25 mg Documented by: Ropinirole HCl (Ropinirole Hcl 1 Mg Tablet) 1 mg PO BID [facility] Last Admin: 01/27/21 20:49 Dose: 1 mg Documented by: Trazodone HCl (Trazodone Hcl 50 Mg Tablet) 50 mg PO BEDTIME PRN PRN Reason: Insomnia Last Admin: 01/22/21 00:02 Dose: 50 mg Documented by: Allergies Allergies Allergy/AdvReac Type Severity Reaction Status Date / Time No Known Allergies Allergy Unverified 01/04/20 16:15 [No Known Allergies*] Assessment & Plan Assessment & Plan (1) Opioid use disorder: Status: Acute Code(s): F11.90 - Opioid use, unspecified, uncomplicated Assessment and Plan: Continue Suboxone 4 mg b.i.d. 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 He relapsed in the last 2 years on opioids after the diagnosis of throat cancer. Plan 1. Keep Remeron up to 30 mg p.o. q.h.s. to target insomnia and depression. 2. Continue same medications. 3. A consult to speech and swallow was done and they recommended to reassess after biopsy of the throat at the end of the month. Apparently, the patient does not want to participate on a special diet. Seroquel 50 mg bedtime help with sleep she help with depression and 25 mg in the a.m. for anxiety and depressive symptoms patient continues to be intermittently hopeless helpless with thoughts that he may be better off Greater than 50% of the session was spent on counseling and/or coordination of care Reason for contiued inpatient stay Substantial Risk for: med/psych decompensation
--- NOTE | 2021-01-27 22:04 | P.PNPSI_ITS ---
Subjective Subjective Date of Service: 01/27/21 Reason For Visit: suicidal ideation Interim History: remians anxious about discharge and wanting to make sure he's off suboxone prior. agrees to lowering subxone to 2mg BID (down from 4mg BID); ticket writer asked why this not done earlier and pt reports until now, he was on the fence whether to remain on suboxone or get off. Denies SI/HI. PT says he will not be able to taper himself off at home since he knows himself and that he will just not...won't do it...i'll give up. Mental Status Exam Mental Status Exam Narrative: ?Patient Appearance:?Fatigued and Appropriate Patient Orientation:?Person Level of Consciousness:?Awake Patient Behavior:?Cooperative and Passive Mood Description:?anxious Affect Description:?constricted but brighter Patient Cognition Impaired:?No Ability to Follow Directions:?Good Speech Pattern:?Coarse and soft voice due to throat cancer but regular rate Memory Description:?Intact Hallucinations:?None Delusions:?Not Present Thought Process:?Linear Thought Content:getting off suboxone prior to discharge; denies SI/HI Judgment:?Fair Diagnostics Vital Signs (24Hr): Vital Signs - 24 hr 01/27/21 08:45 01/27/21 18:00 01/27/21 20:49 Temperature 98.7 F Pulse Rate 74 84 84 Respiratory Rate 16 Blood Pressure 115/61 101/65 101/65 Pulse Oximetry 96 Body Mass Index 20.8 Labs Results: 01/22/21 12:12 01/23/21 06:04 Imaging Radiology Impressions: ITS Impressions Hand X-Ray 01/22/21 16:24 IMPRESSION: 1. Probable nondisplaced fracture through the radial aspect of the 1st distal phalanx which contacts the articular surface. 2. Possible mildly displaced fracture along the radial base of the 5th proximal phalanx. Correlate for focal tenderness. 3. Scattered degenerative arthritis. Medications Medications Current Medications Acetaminophen (Acetaminophen 325 Mg Tablet) 650 mg PO Q6H PRN PRN Reason: Headache/Pain Mild Scale (1-3) Last Admin: 01/21/21 04:10 Dose: 650 mg Documented by: Al Hydroxide/Mg Hydroxide (Magnesium Hydrox/Alum Hydrox 30 Ml Oral.Susp) 30 ml PO Q6H PRN PRN Reason: Heartburn/Nausea Buprenorphine/Naloxone (Buprenorphine/Naloxone 2/0.5mg Film) 1 film SUBLINGUAL BID [facility] Last Admin: 01/27/21 20:49 Dose: 1 film Documented by: Clonazepam (Clonazepam 0.5 Mg Tablet) 0.5 mg PO TID PRN PRN Reason: Anxiety Last Admin: 01/27/21 15:55 Dose: 0.5 mg Documented by: Clonidine HCl (Clonidine Hcl 0.1 Mg Tablet) 0.05 mg PO TID [facility]; Protocol Last Admin: 01/27/21 20:49 Dose: 0.05 mg Documented by: Fluoxetine HCl (Fluoxetine Hcl 20 Mg Capsule) 20 mg PO DAILY [facility] Last Admin: 01/27/21 08:45 Dose: 20 mg Documented by: Hydroxyzine HCl (Hydroxyzine Hcl 25 Mg Tablet) 25 mg PO BEDTIME PRN PRN Reason: Anxiety Last Admin: 01/20/21 23:57 Dose: 25 mg Documented by: Magnesium Hydroxide (Milk Of Magnesia 30 Ml Oral.Susp) 30 ml PO DAILY PRN PRN Reason: Constipation Mirtazapine (Mirtazapine 30 Mg Tablet) 30 mg PO BEDTIME [facility] Last Admin: 01/27/21 20:49 Dose: 30 mg Documented by: Nicotine (Nicotine 14 Mg Patch.Td24) 14 mg TRANSDERMA DAILY [facility] Last Admin: 01/27/21 11:13 Dose: Not Given Documented by: Omeprazole (Omeprazole 20 Mg Capsule.Dr) 20 mg PO DAILY [facility] Last Admin: 01/27/21 08:50 Dose: 20 mg Documented by: Quetiapine Fumarate (Quetiapine Fumarate 50 Mg Tablet) 50 mg PO BEDTIME [facility] Last Admin: 01/27/21 20:49 Dose: 50 mg Documented by: Quetiapine Fumarate (Quetiapine Fumarate 25 Mg Tablet) 25 mg PO DAILY [facility] Last Admin: 01/27/21 08:51 Dose: 25 mg Documented by: Ropinirole HCl (Ropinirole Hcl 1 Mg Tablet) 1 mg PO BID [facility] Last Admin: 01/27/21 20:49 Dose: 1 mg Documented by: Trazodone HCl (Trazodone Hcl 50 Mg Tablet) 50 mg PO BEDTIME PRN PRN Reason: Insomnia Last Admin: 01/22/21 00:02 Dose: 50 mg Documented by: Allergies Allergies Allergy/AdvReac Type Severity Reaction Status Date / Time No Known Allergies Allergy Unverified 01/04/20 16:15 [No Known Allergies*] Assessment & Plan Assessment & Plan (1) Opioid use disorder: Status: Acute Code(s): F11.90 - Opioid use, unspecified, uncomplicated Assessment and Plan: Continue Suboxone 4 mg b.i.d. 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 He relapsed in the last 2 years on opioids after the diagnosis of throat cancer. Plan 1. Keep Remeron up to 30 mg p.o. q.h.s. to target insomnia and depression. 2. Continue same medications. 3. A consult to speech and swallow was done and they recommended to reassess after biopsy of the throat at the end of the month. Apparently, the patient does not want to participate on a special diet. Seroquel 50 mg bedtime help with sleep she help with depression and 25 mg in the a.m. for anxiety and depressive symptoms patient continues to be intermittently hopeless helpless with thoughts that he may be better off Greater than 50% of the session was spent on counseling and/or coordination of care Reason for contiued inpatient stay Substantial Risk for: med/psych decompensation
[2021-01-28 06:00] VITALS: BP 134/55; PULSE 70; RESP 16; TEMP 36.8; O2SAT 97
[2021-01-28 09:40] VITALS: BP 134/55; PULSE 70
[2021-01-28] MEDS: cloNIDine HCL 0.1 MG TABLET 0.05 MG PO ×3 (09:40→20:08)
[2021-01-28] MEDS: Buprenorphine/Naloxone 2/0.5mg FILM 1 FILM SUBLINGUAL (09:44)
[2021-01-28] MEDS: rOPINIRole HCL 1 MG TABLET PO ×2 (09:44→20:07)
[2021-01-28] MEDS: FLUoxetine HCl 20 MG CAPSULE PO (09:45)
[2021-01-28] MEDS: QUEtiapine Fumarate 25 MG TABLET PO (09:45)
[2021-01-28] MEDS: Omeprazole 20 MG CAPSULE.DR PO (09:46)
--- NOTE | 2021-01-28 14:00 | P.PNPSI_ITS ---
Subjective Subjective Date of Service: 01/28/21 Reason For Visit: suicidal ideation Interim History: The nursing staff reported the patient has been anxious since he has to go home eventually. Last week we will receive collateral information and it seems that he has a lesion on his throat but not throat cancer and he is scheduled for a biopsy of February 11. On interview, I explained about the possibility that his lesion on the throat is not cancer. He wanted to lower or discontinue his Suboxone so he agreed to taper it off slowly. At this moment no safety concerns Review of Systems Acute medical concerns: No Medical Review of Systems: unchanged Mental Status Exam Mental Status Exam Patient Appearance: Well Grooomed Patient Orientation: Person Level of Consciousness: Awake Patient Behavior: Appropriate and Self Manipulative Mood Description: Anxious Affect Description: Withdrawn Patient Cognition Impaired: No Ability to Follow Directions: Good Speech Pattern: Slurred (Course at times) Memory Description: Intact Hallucinations: None Delusions: Not Present Thought Process: Distracted Thought Content: positive for Preoccupation Judgement: Fair Diagnostics Vital Signs (24Hr): Vital Signs - 24 hr 01/27/21 18:00 01/27/21 20:49 01/28/21 06:00 Temperature 98.7 F 98.2 F Pulse Rate 84 84 70 Respiratory Rate 16 16 Blood Pressure 101/65 101/65 134/55 L Pulse Oximetry 96 97 01/28/21 09:40 Temperature Pulse Rate 70 Respiratory Rate Blood Pressure 134/55 L Pulse Oximetry Body Mass Index 20.8 Labs Results: 01/22/21 12:12 01/23/21 06:04 Imaging Radiology Impressions: ITS Impressions Hand X-Ray 01/22/21 16:24 IMPRESSION: 1. Probable nondisplaced fracture through the radial aspect of the 1st distal phalanx which contacts the articular surface. 2. Possible mildly displaced fracture along the radial base of the 5th proximal phalanx. Correlate for focal tenderness. 3. Scattered degenerative arthritis. Medications Medications Current Medications Acetaminophen (Acetaminophen 325 Mg Tablet) 650 mg PO Q6H PRN PRN Reason: Headache/Pain Mild Scale (1-3) Last Admin: 01/21/21 04:10 Dose: 650 mg Documented by: Al Hydroxide/Mg Hydroxide (Magnesium Hydrox/Alum Hydrox 30 Ml Oral.Susp) 30 ml PO Q6H PRN PRN Reason: Heartburn/Nausea Buprenorphine/Naloxone (Buprenorphine/Naloxone 2/0.5mg Film) 1 film SUBLINGUAL DAILY [facility] Clonazepam (Clonazepam 0.5 Mg Tablet) 0.5 mg PO TID PRN PRN Reason: Anxiety Last Admin: 01/27/21 15:55 Dose: 0.5 mg Documented by: Clonidine HCl (Clonidine Hcl 0.1 Mg Tablet) 0.05 mg PO TID [facility]; Protocol Last Admin: 01/28/21 09:40 Dose: 0.05 mg Documented by: Fluoxetine HCl (Fluoxetine Hcl 20 Mg Capsule) 20 mg PO DAILY [facility] Last Admin: 01/28/21 09:45 Dose: 20 mg Documented by: Hydroxyzine HCl (Hydroxyzine Hcl 25 Mg Tablet) 25 mg PO BEDTIME PRN PRN Reason: Anxiety Last Admin: 01/20/21 23:57 Dose: 25 mg Documented by: Magnesium Hydroxide (Milk Of Magnesia 30 Ml Oral.Susp) 30 ml PO DAILY PRN PRN Reason: Constipation Mirtazapine (Mirtazapine 30 Mg Tablet) 30 mg PO BEDTIME [facility] Last Admin: 01/27/21 20:49 Dose: 30 mg Documented by: Omeprazole (Omeprazole 20 Mg Capsule.Dr) 20 mg PO DAILY [facility] Last Admin: 01/28/21 09:46 Dose: 20 mg Documented by: Quetiapine Fumarate (Quetiapine Fumarate 50 Mg Tablet) 50 mg PO BEDTIME [facility] Last Admin: 01/27/21 20:49 Dose: 50 mg Documented by: Quetiapine Fumarate (Quetiapine Fumarate 25 Mg Tablet) 25 mg PO DAILY [facility] Last Admin: 01/28/21 09:45 Dose: 25 mg Documented by: Ropinirole HCl (Ropinirole Hcl 1 Mg Tablet) 1 mg PO BID [facility] Last Admin: 01/28/21 09:44 Dose: 1 mg Documented by: Trazodone HCl (Trazodone Hcl 50 Mg Tablet) 50 mg PO BEDTIME PRN PRN Reason: Insomnia Last Admin: 01/22/21 00:02 Dose: 50 mg Documented by: Allergies Allergies Allergy/AdvReac Type Severity Reaction Status Date / Time No Known Allergies Allergy Unverified 01/04/20 16:15 [No Known Allergies*] Assessment & Plan Assessment & Plan (1) Opioid use disorder: Status: Acute Code(s): F11.90 - Opioid use, unspecified, uncomplicated Assessment and Plan: Continue Suboxone 4 mg b.i.d. 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 He relapsed in the last 2 years on opioids after the diagnosis of throat cancer. Plan 1. Keep Remeron up to 30 mg p.o. q.h.s. to target insomnia and depression. 2. Continue same medications. 3. A consult to speech and swallow was done and they recommended to reassess after biopsy of the throat at the end of the month. Apparently, the patient does not want to participate on a special diet. Seroquel 50 mg bedtime help with sleep she help with depression and 25 mg in the a.m. for anxiety and depressive symptoms patient continues to be intermittently hopeless helpless with thoughts that he may be better off . 4. Lower Suboxone to once a day Greater than 50% of the session was spent on counseling and/or coordination of care Reason for contiued inpatient stay Substantial Risk for: harm to self, inability to function, rapid decompensation and med/psych decompensation
[2021-01-28 15:24] VITALS: BP 113/73; PULSE 84
[2021-01-28] MEDS: clonazePAM 0.5 MG TABLET PO ×2 (15:42→20:07)
[2021-01-28 20:05] VITALS: BP 127/79; PULSE 84; RESP 18; TEMP 37.2; O2SAT 97
[2021-01-28 20:08] VITALS: BP 127/79; PULSE 84
[2021-01-28] MEDS: Mirtazapine 30 MG TABLET PO (20:08)
[2021-01-28] MEDS: QUEtiapine Fumarate 50 MG TABLET PO (20:09)
[2021-01-29 06:00] VITALS: BP 121/79; PULSE 68; TEMP 36.3; O2SAT 98
[2021-01-29] MEDS: Buprenorphine/Naloxone 2/0.5mg FILM 1 FILM SUBLINGUAL (09:24)
[2021-01-29] MEDS: rOPINIRole HCL 1 MG TABLET PO ×2 (09:25→20:24)
[2021-01-29] MEDS: QUEtiapine Fumarate 25 MG TABLET PO (09:25)
[2021-01-29] MEDS: FLUoxetine HCl 20 MG CAPSULE PO (09:25)
[2021-01-29] MEDS: Omeprazole 20 MG CAPSULE.DR PO (09:25)
[2021-01-29 09:26] VITALS: BP 121/79; PULSE 68
[2021-01-29] MEDS: cloNIDine HCL 0.1 MG TABLET 0.05 MG PO ×3 (09:26→20:24)
--- NOTE | 2021-01-29 13:46 | MHC.CLN ---
F/U PATIENT REPORTS THAT HE IS EATING WELL. LIKES [employer]AWBERRY FLAVOR ENSURE. ALERTED KITCHEN. ORDER IN PLACE FOR ENSURE TID (1050 KCAL, 60 G PROTEIN). CONTINUE TO FOLLOW DIET AND INTAKE.
--- NOTE | 2021-01-29 15:13 | HO.PSYCHPN ---
Subjective Subjective Date of Service: 01/29/21 Reason For Visit: suicidal ideation Subjective Notes: Conditional Voluntary Interim History: The nursing staff reports no changes in his mental status, he states most of the time in his bed. On interview the patient reported that he has some withdrawal symptoms since we are tapering of Suboxone since he wants to be discharged without any opioid. No safety concerns at this moment Medication Compliance: Yes Side effects from medications: No Attending Groups: Intermittent Review of Systems Acute medical concerns: No Medical Review of Systems: unchanged Mental Status Exam Mental Status Exam Patient Appearance: Well Grooomed Patient Orientation: Person Level of Consciousness: Awake Patient Behavior: Cooperative Mood Description: Constricted Affect Description: Constricted Patient Cognition Impaired: No Ability to Follow Directions: Good Speech Pattern: Clear Memory Description: Intact Hallucinations: None Delusions: Not Present Thought Process: Goal Oriented Thought Content: positive for Circumstantial Judgement: Fair Diagnostics Vital Signs (24Hr): Vital Signs - 24 hr 01/28/21 15:24 01/28/21 20:05 01/28/21 20:08 Temperature 98.9 F Pulse Rate 84 84 84 Respiratory Rate 18 Blood Pressure 113/73 127/79 127/79 Pulse Oximetry 97 01/29/21 06:00 01/29/21 09:26 Temperature 97.4 F Pulse Rate 68 68 Respiratory Rate Blood Pressure 121/79 121/79 Pulse Oximetry 98 Body Mass Index 20.8 Labs Results: 01/22/21 12:12 01/23/21 06:04 Imaging Radiology Impressions: ITS Impressions Hand X-Ray 01/22/21 16:24 IMPRESSION: 1. Probable nondisplaced fracture through the radial aspect of the 1st distal phalanx which contacts the articular surface. 2. Possible mildly displaced fracture along the radial base of the 5th proximal phalanx. Correlate for focal tenderness. 3. Scattered degenerative arthritis. Medications Medications Current Medications Acetaminophen (Acetaminophen 325 Mg Tablet) 650 mg PO Q6H PRN PRN Reason: Headache/Pain Mild Scale (1-3) Last Admin: 01/21/21 04:10 Dose: 650 mg Documented by: Al Hydroxide/Mg Hydroxide (Magnesium Hydrox/Alum Hydrox 30 Ml Oral.Susp) 30 ml PO Q6H PRN PRN Reason: Heartburn/Nausea Buprenorphine/Naloxone (Buprenorphine/Naloxone 2/0.5mg Film) 1 film SUBLINGUAL DAILY [facility] Last Admin: 01/29/21 09:24 Dose: 1 film Documented by: Clonazepam (Clonazepam 0.5 Mg Tablet) 0.5 mg PO TID PRN PRN Reason: Anxiety Last Admin: 01/28/21 20:07 Dose: 0.5 mg Documented by: Clonidine HCl (Clonidine Hcl 0.1 Mg Tablet) 0.05 mg PO TID [facility]; Protocol Last Admin: 01/29/21 09:26 Dose: 0.05 mg Documented by: Fluoxetine HCl (Fluoxetine Hcl 20 Mg Capsule) 20 mg PO DAILY [facility] Last Admin: 01/29/21 09:25 Dose: 20 mg Documented by: Hydroxyzine HCl (Hydroxyzine Hcl 25 Mg Tablet) 25 mg PO BEDTIME PRN PRN Reason: Anxiety Last Admin: 01/20/21 23:57 Dose: 25 mg Documented by: Magnesium Hydroxide (Milk Of Magnesia 30 Ml Oral.Susp) 30 ml PO DAILY PRN PRN Reason: Constipation Mirtazapine (Mirtazapine 30 Mg Tablet) 30 mg PO BEDTIME [facility] Last Admin: 01/28/21 20:08 Dose: 30 mg Documented by: Omeprazole (Omeprazole 20 Mg Capsule.Dr) 20 mg PO DAILY [facility] Last Admin: 01/29/21 09:25 Dose: 20 mg Documented by: Quetiapine Fumarate (Quetiapine Fumarate 50 Mg Tablet) 50 mg PO BEDTIME [facility] Last Admin: 01/28/21 20:09 Dose: 50 mg Documented by: Quetiapine Fumarate (Quetiapine Fumarate 25 Mg Tablet) 25 mg PO DAILY [facility] Last Admin: 01/29/21 09:25 Dose: 25 mg Documented by: Ropinirole HCl (Ropinirole Hcl 1 Mg Tablet) 1 mg PO BID [facility] Last Admin: 01/29/21 09:25 Dose: 1 mg Documented by: Trazodone HCl (Trazodone Hcl 50 Mg Tablet) 50 mg PO BEDTIME PRN PRN Reason: Insomnia Last Admin: 01/22/21 00:02 Dose: 50 mg Documented by: Allergies Allergies Allergy/AdvReac Type Severity Reaction Status Date / Time No Known Allergies Allergy Unverified 01/04/20 16:15 [No Known Allergies*] Assessment & Plan Assessment & Plan (1) Opioid use disorder: Status: Acute Code(s): F11.90 - Opioid use, unspecified, uncomplicated Assessment and Plan: Continue Suboxone 4 mg b.i.d. 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 He relapsed in the last 2 years on opioids after the diagnosis of throat cancer. Plan 1. Keep Remeron up to 30 mg p.o. q.h.s. to target insomnia and depression. 2. Continue same medications. 3. A consult to speech and swallow was done and they recommended to reassess after biopsy of the throat at the end of the month. Apparently, the patient does not want to participate on a special diet. Seroquel 50 mg bedtime help with sleep she help with depression and 25 mg in the a.m. for anxiety and depressive symptoms patient continues to be intermittently hopeless helpless with thoughts that he may be better off . 4. Lower Suboxone to once a day and discontinue his last dose tomorrow. Greater than 50% of the session was spent on counseling and/or coordination of care Reason for contiued inpatient stay Substantial Risk for: inability to function, rapid decompensation and med/psych decompensation
[2021-01-29 15:16] VITALS: BP 127/71; PULSE 76
[2021-01-29] MEDS: clonazePAM 0.5 MG TABLET PO (15:21)
[2021-01-29 18:00] VITALS: BP 122/58; PULSE 83; RESP 20; TEMP 36.7; O2SAT 98
[2021-01-29 20:24] VITALS: BP 122/58; PULSE 83
[2021-01-29] MEDS: Mirtazapine 30 MG TABLET PO (20:24)
[2021-01-29] MEDS: QUEtiapine Fumarate 50 MG TABLET PO (20:24)
--- NOTE | 2021-01-30 08:44 | PC.NURSE ---
Pt's POC this morning is 150, pt had already eaten breakfast. Pt asymptomatic.
[2021-01-30 09:37] VITALS: BP 118/57; PULSE 76; RESP 16; TEMP 36.6; O2SAT 94
[2021-01-30 09:39] VITALS: BP 118/62; PULSE 76
[2021-01-30] MEDS: QUEtiapine Fumarate 25 MG TABLET PO (09:39)
[2021-01-30] MEDS: cloNIDine HCL 0.1 MG TABLET 0.05 MG PO ×3 (09:39→20:12)
[2021-01-30] MEDS: FLUoxetine HCl 20 MG CAPSULE PO (09:39)
[2021-01-30] MEDS: Buprenorphine/Naloxone 2/0.5mg FILM 1 FILM SUBLINGUAL (09:39)
[2021-01-30] MEDS: Omeprazole 20 MG CAPSULE.DR PO (09:39)
[2021-01-30] MEDS: rOPINIRole HCL 1 MG TABLET PO ×2 (09:39→20:12)
--- NOTE | 2021-01-30 12:02 | HO.PSYCHPN ---
Subjective Subjective Date of Service: 01/30/21 Reason For Visit: suicidal ideation Subjective Notes: Conditional Voluntary Interim History: The nursing staff reported that the patient was irritable sings he missed his 2nd dose of Suboxone meeting. He reported that he wants to continue to taper Suboxone now. According to the social sciences instructor he has denied access to go to the [facility] and he wants to go to his AA sponsor home. On interview, we discussed the treatment for opiate dependence and he agreed on the plan below Medication Compliance: Yes Side effects from medications: No Attending Groups: Intermittent Review of Systems Acute medical concerns: No Medical Review of Systems: unchanged Mental Status Exam Mental Status Exam Patient Appearance: Well Grooomed Patient Orientation: Person, Place, Time and Situation Level of Consciousness: Awake and Appropriate Patient Behavior: Appropriate and Cooperative Mood Description: Calm and Depressed Affect Description: Constricted Patient Cognition Impaired: No Ability to Follow Directions: Good Speech Pattern: Poor Articulation (coarse) Memory Description: Intact Hallucinations: None Delusions: Not Present Thought Process: Intact Thought Content: positive for Intact Judgement: Fair Diagnostics Vital Signs (24Hr): Vital Signs - 24 hr 01/29/21 15:16 01/29/21 18:00 01/29/21 20:24 Temperature 98.1 F Pulse Rate 76 83 83 Respiratory Rate 20 Blood Pressure 127/71 122/58 L 122/58 L Pulse Oximetry 98 01/30/21 09:37 01/30/21 09:39 Temperature 97.8 F Pulse Rate 76 76 Respiratory Rate 16 Blood Pressure 118/57 L 118/62 Pulse Oximetry 94 Body Mass Index 20.8 Labs Results: 01/22/21 12:12 01/23/21 06:04 Imaging Radiology Impressions: ITS Impressions Hand X-Ray 01/22/21 16:24 IMPRESSION: 1. Probable nondisplaced fracture through the radial aspect of the 1st distal phalanx which contacts the articular surface. 2. Possible mildly displaced fracture along the radial base of the 5th proximal phalanx. Correlate for focal tenderness. 3. Scattered degenerative arthritis. Medications Medications Current Medications Acetaminophen (Acetaminophen 325 Mg Tablet) 650 mg PO Q6H PRN PRN Reason: Headache/Pain Mild Scale (1-3) Last Admin: 01/21/21 04:10 Dose: 650 mg Documented by: Al Hydroxide/Mg Hydroxide (Magnesium Hydrox/Alum Hydrox 30 Ml Oral.Susp) 30 ml PO Q6H PRN PRN Reason: Heartburn/Nausea Buprenorphine/Naloxone (Buprenorphine/Naloxone 2/0.5mg Film) 1 film SUBLINGUAL DAILY [facility] Last Admin: 01/30/21 09:39 Dose: 1 film Documented by: Clonidine HCl (Clonidine Hcl 0.1 Mg Tablet) 0.05 mg PO TID [facility]; Protocol Last Admin: 01/30/21 09:39 Dose: 0.05 mg Documented by: Fluoxetine HCl (Fluoxetine Hcl 20 Mg Capsule) 20 mg PO DAILY [facility] Last Admin: 01/30/21 09:39 Dose: 20 mg Documented by: Hydroxyzine HCl (Hydroxyzine Hcl 25 Mg Tablet) 25 mg PO BEDTIME PRN PRN Reason: Anxiety Last Admin: 01/20/21 23:57 Dose: 25 mg Documented by: Magnesium Hydroxide (Milk Of Magnesia 30 Ml Oral.Susp) 30 ml PO DAILY PRN PRN Reason: Constipation Mirtazapine (Mirtazapine 30 Mg Tablet) 30 mg PO BEDTIME [facility] Last Admin: 01/29/21 20:24 Dose: 30 mg Documented by: Omeprazole (Omeprazole 20 Mg Capsule.Dr) 20 mg PO DAILY [facility] Last Admin: 01/30/21 09:39 Dose: 20 mg Documented by: Quetiapine Fumarate (Quetiapine Fumarate 50 Mg Tablet) 50 mg PO BEDTIME [facility] Last Admin: 01/29/21 20:24 Dose: 50 mg Documented by: Quetiapine Fumarate (Quetiapine Fumarate 25 Mg Tablet) 25 mg PO DAILY [facility] Last Admin: 01/30/21 09:39 Dose: 25 mg Documented by: Ropinirole HCl (Ropinirole Hcl 1 Mg Tablet) 1 mg PO BID [facility] Last Admin: 01/30/21 09:39 Dose: 1 mg Documented by: Trazodone HCl (Trazodone Hcl 50 Mg Tablet) 50 mg PO BEDTIME PRN PRN Reason: Insomnia Last Admin: 01/22/21 00:02 Dose: 50 mg Documented by: Allergies Allergies Allergy/AdvReac Type Severity Reaction Status Date / Time No Known Allergies Allergy Unverified 01/04/20 16:15 [No Known Allergies*] Assessment & Plan Assessment & Plan (1) Opioid use disorder: Status: Acute Code(s): F11.90 - Opioid use, unspecified, uncomplicated Assessment and Plan: Continue Suboxone 4 mg b.i.d. 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 He relapsed in the last 2 years on opioids after the diagnosis of throat cancer. Plan 1. Keep Remeron up to 30 mg p.o. q.h.s. to target insomnia and depression. 2. Continue same medications. 3. A consult to speech and swallow was done and they recommended to reassess after biopsy of the throat at the end of the month. Apparently, the patient does not want to participate on a special diet. Seroquel 50 mg bedtime help with sleep she help with depression and 25 mg in the a.m. for anxiety and depressive symptoms patient continues to be intermittently hopeless helpless with thoughts that he may be better off . 4. Lower Suboxone to once a day and discontinue his last dose on Wednesday. Greater than 50% of the session was spent on counseling and/or coordination of care Reason for contiued inpatient stay Substantial Risk for: inability to function, rapid decompensation and med/psych decompensation
[2021-01-30] MEDS: clonazePAM 0.5 MG TABLET PO (17:21)
[2021-01-30 18:00] VITALS: BP 104/63; PULSE 63; RESP 19; TEMP 37.1; O2SAT 97
[2021-01-30 20:12] VITALS: BP 104/63; PULSE 63
[2021-01-30] MEDS: QUEtiapine Fumarate 50 MG TABLET PO (20:12)
[2021-01-30] MEDS: Mirtazapine 30 MG TABLET PO (20:12)
[2021-01-31 08:28] VITALS: BP 120/75; PULSE 73
[2021-01-31] MEDS: Omeprazole 20 MG CAPSULE.DR PO (08:28)
[2021-01-31] MEDS: cloNIDine HCL 0.1 MG TABLET 0.05 MG PO ×2 (08:28→14:10)
[2021-01-31] MEDS: FLUoxetine HCl 20 MG CAPSULE PO (08:28)
[2021-01-31] MEDS: Buprenorphine/Naloxone 2/0.5mg FILM 1 FILM SUBLINGUAL (08:28)
[2021-01-31] MEDS: rOPINIRole HCL 1 MG TABLET PO ×2 (08:30→19:58)
[2021-01-31] MEDS: QUEtiapine Fumarate 25 MG TABLET PO (08:30)
[2021-01-31 08:49] VITALS: BP 120/75; PULSE 73; RESP 18; TEMP 36.7; O2SAT 98
--- NOTE | 2021-01-31 11:54 | MHC.CLN ---
F/U NOT FEELING WELL AT TIME OF VISIT. REPORTED THAT ATE SOME BREAKFAST TODAY. NO ADDITIONAL NUTRITION INTERVENTIONS.
[2021-01-31 14:10] VITALS: BP 98/65; PULSE 72
[2021-01-31] MEDS: clonazePAM 0.5 MG TABLET PO ×2 (14:11→19:58)
--- NOTE | 2021-01-31 14:16 | HO.PSYCHPN ---
Subjective Subjective Date of Service: 01/31/21 Reason For Visit: suicidal ideation Subjective Notes: Conditional Voluntary Interim History: The nursing staff reported that the patient has been in his room most of the time. The social welfare research worker talk with his brother and apparently there angry because they could not find proper housing for him. On interview, the patient denies new symptoms he says scared of getting withdrawal symptoms. He is fully aware that he will have clonidine p.r.n.. Mental Status Exam Mental Status Exam Patient Appearance: Disheveled Patient Orientation: Person, Place, Time and Situation Level of Consciousness: Awake and Appropriate Patient Behavior: Cooperative Mood Description: Depressed Affect Description: Constricted Patient Cognition Impaired: No Ability to Follow Directions: Good Speech Pattern: Poor Articulation (Coarse voice) Memory Description: Intact Hallucinations: None Delusions: Not Present Thought Process: Intact Thought Content: positive for Circumstantial Judgement: Fair Diagnostics Vital Signs (24Hr): Vital Signs - 24 hr 01/30/21 18:00 01/30/21 20:12 01/31/21 08:28 Temperature 98.8 F Pulse Rate 63 63 73 Respiratory Rate 19 Blood Pressure 104/63 104/63 120/75 Pulse Oximetry 97 01/31/21 08:49 01/31/21 14:10 Temperature 98.0 F Pulse Rate 73 72 Respiratory Rate 18 Blood Pressure 120/75 98/65 Pulse Oximetry 98 Body Mass Index 20.8 Labs Results: 01/22/21 12:12 01/23/21 06:04 Imaging Radiology Impressions: ITS Impressions Hand X-Ray 01/22/21 16:24 IMPRESSION: 1. Probable nondisplaced fracture through the radial aspect of the 1st distal phalanx which contacts the articular surface. 2. Possible mildly displaced fracture along the radial base of the 5th proximal phalanx. Correlate for focal tenderness. 3. Scattered degenerative arthritis. Medications Medications Current Medications Acetaminophen (Acetaminophen 325 Mg Tablet) 650 mg PO Q6H PRN PRN Reason: Headache/Pain Mild Scale (1-3) Last Admin: 01/21/21 04:10 Dose: 650 mg Documented by: Al Hydroxide/Mg Hydroxide (Magnesium Hydrox/Alum Hydrox 30 Ml Oral.Susp) 30 ml PO Q6H PRN PRN Reason: Heartburn/Nausea Clonazepam (Clonazepam 0.5 Mg Tablet) 0.5 mg PO TID PRN PRN Reason: agitation, anxiety Last Admin: 01/31/21 14:11 Dose: 0.5 mg Documented by: Clonidine HCl (Clonidine Hcl 0.1 Mg Tablet) 0.05 mg PO TID [facility]; Protocol Last Admin: 01/31/21 14:10 Dose: 0.05 mg Documented by: Fluoxetine HCl (Fluoxetine Hcl 20 Mg Capsule) 20 mg PO DAILY [facility] Last Admin: 01/31/21 08:28 Dose: 20 mg Documented by: Hydroxyzine HCl (Hydroxyzine Hcl 25 Mg Tablet) 25 mg PO BEDTIME PRN PRN Reason: Anxiety Last Admin: 01/20/21 23:57 Dose: 25 mg Documented by: Magnesium Hydroxide (Milk Of Magnesia 30 Ml Oral.Susp) 30 ml PO DAILY PRN PRN Reason: Constipation Mirtazapine (Mirtazapine 30 Mg Tablet) 30 mg PO BEDTIME [facility] Last Admin: 01/30/21 20:12 Dose: 30 mg Documented by: Omeprazole (Omeprazole 20 Mg Capsule.Dr) 20 mg PO DAILY [facility] Last Admin: 01/31/21 08:28 Dose: 20 mg Documented by: Quetiapine Fumarate (Quetiapine Fumarate 50 Mg Tablet) 50 mg PO BEDTIME [facility] Last Admin: 01/30/21 20:12 Dose: 50 mg Documented by: Quetiapine Fumarate (Quetiapine Fumarate 25 Mg Tablet) 25 mg PO DAILY [facility] Last Admin: 01/31/21 08:30 Dose: 25 mg Documented by: Ropinirole HCl (Ropinirole Hcl 1 Mg Tablet) 1 mg PO BID [facility] Last Admin: 01/31/21 08:30 Dose: 1 mg Documented by: Trazodone HCl (Trazodone Hcl 50 Mg Tablet) 50 mg PO BEDTIME PRN PRN Reason: Insomnia Last Admin: 01/22/21 00:02 Dose: 50 mg Documented by: Allergies Allergies Allergy/AdvReac Type Severity Reaction Status Date / Time No Known Allergies Allergy Unverified 01/04/20 16:15 [No Known Allergies*] Assessment & Plan Assessment & Plan (1) Opioid use disorder: Status: Acute Code(s): F11.90 - Opioid use, unspecified, uncomplicated Assessment and Plan: Continue Suboxone 4 mg b.i.d. 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 He relapsed in the last 2 years on opioids after the diagnosis of throat cancer. Plan 1. Keep Remeron up to 30 mg p.o. q.h.s. to target insomnia and depression. 2. Continue same medications. 3. A consult to speech and swallow was done and they recommended to reassess after biopsy of the throat at the end of the month. Apparently, the patient does not want to participate on a special diet. Seroquel 50 mg bedtime help with sleep she help with depression and 25 mg in the a.m. for anxiety and depressive symptoms patient continues to be intermittently hopeless helpless with thoughts that he may be better off . 4. Discontinue Suboxone Greater than 50% of the session was spent on counseling and/or coordination of care Reason for contiued inpatient stay Substantial Risk for: inability to function, rapid decompensation and med/psych decompensation
[2021-01-31] MEDS: traZODone HCL 50 MG TABLET PO (19:58)
[2021-01-31] MEDS: QUEtiapine Fumarate 50 MG TABLET PO (19:58)
[2021-01-31] MEDS: hydrOXYzine HCL 25 MG TABLET PO (19:58)
[2021-01-31] MEDS: Mirtazapine 30 MG TABLET PO (19:58)
[2021-01-31 20:06] VITALS: BP 135/61; PULSE 70; RESP 18; TEMP 37.1; O2SAT 97
[2021-02-01 06:00] VITALS: BP 121/68; PULSE 68; RESP 18; TEMP 36.1; O2SAT 97
[2021-02-01] MEDS: rOPINIRole HCL 1 MG TABLET PO ×2 (10:04→21:27)
[2021-02-01] MEDS: Omeprazole 20 MG CAPSULE.DR PO (10:04)
[2021-02-01] MEDS: QUEtiapine Fumarate 25 MG TABLET PO (10:05)
[2021-02-01] MEDS: FLUoxetine HCl 20 MG CAPSULE PO (10:06)
[2021-02-01] MEDS: clonazePAM 0.5 MG TABLET PO ×2 (10:38→21:27)
[2021-02-01 18:00] VITALS: BP 113/70; PULSE 77; RESP 16; TEMP 36; O2SAT 99
--- NOTE | 2021-02-01 18:15 | HO.PSYCHPN ---
Subjective Subjective Date of Service: 02/01/21 Reason For Visit: suicidal ideation Interim History: Patient seen and discussed with team. Patient evaluated this morning and upon interview pt reports he is alright, feels nervous and anxious. Sx include I shake. He is now off suboxone, as pt self requested to titrate off it. Appetite is okay. No constipation. Sleep is okay, getting 4 hours, feels tired, says at night he wakes up at 4am and will lay here and stare at the ceiling. Has nightmares. Endorses urges for opiates a little bit but declines to have a consult with trade specialist or recovery team, i?m alright. Willing to trial an increase in PRN clonidine for anxiety. In the milieu, patient is safe but withdrawn and isolative in behavior. Denies SI/SIB/HI upon inquiry. Denies irritability or assaultive ideation. Says he feels safe. Medication Compliance: Yes Side effects from medications: No Attending Groups: No Review of Systems Acute medical concerns: No Medical Review of Systems: unchanged Mental Status Exam Mental Status Exam Narrative: Patient Appearance:?Disheveled Patient Orientation:?Person, Place, Time and Situation Level of Consciousness:?Awake and Appropriate Patient Behavior:?Cooperative Mood Description:?Depressed Affect Description:?Constricted Patient Cognition Impaired:?No Ability to Follow Directions:?Good Speech Pattern:?Poor Articulation (Coarse voice) Memory Description:?Intact Hallucinations:?None Delusions:?Not Present Thought Process:?Intact Thought Content:?positive for Circumstantial Judgement:?Fair Diagnostics Vital Signs (24Hr): Vital Signs - 24 hr 01/31/21 20:06 02/01/21 06:00 Temperature 98.7 F 97.0 F Pulse Rate 70 68 Respiratory Rate 18 18 Blood Pressure 135/61 121/68 Pulse Oximetry 97 97 Body Mass Index 20.8 Labs Results: 01/22/21 12:12 01/23/21 06:04 Imaging Radiology Impressions: ITS Impressions Hand X-Ray 01/22/21 16:24 IMPRESSION: 1. Probable nondisplaced fracture through the radial aspect of the 1st distal phalanx which contacts the articular surface. 2. Possible mildly displaced fracture along the radial base of the 5th proximal phalanx. Correlate for focal tenderness. 3. Scattered degenerative arthritis. Medications Medications Current Medications Acetaminophen (Acetaminophen 325 Mg Tablet) 650 mg PO Q6H PRN PRN Reason: Headache/Pain Mild Scale (1-3) Last Admin: 01/21/21 04:10 Dose: 650 mg Documented by: Al Hydroxide/Mg Hydroxide (Magnesium Hydrox/Alum Hydrox 30 Ml Oral.Susp) 30 ml PO Q6H PRN PRN Reason: Heartburn/Nausea Benzocaine (Throat Lozenge, Medicated Lozenge) 1 lozenge MUCOUS MEM Q2H PRN PRN Reason: Sore Throat Clonazepam (Clonazepam 0.5 Mg Tablet) 0.5 mg PO TID PRN PRN Reason: agitation, anxiety Last Admin: 02/01/21 10:38 Dose: 0.5 mg Documented by: Clonidine HCl (Clonidine Hcl 0.1 Mg Tablet) 0.1 mg PO TID PRN; Protocol PRN Reason: palpitations Fluoxetine HCl (Fluoxetine Hcl 20 Mg Capsule) 20 mg PO DAILY [facility] Last Admin: 02/01/21 10:06 Dose: 20 mg Documented by: Hydroxyzine HCl (Hydroxyzine Hcl 25 Mg Tablet) 25 mg PO BEDTIME PRN PRN Reason: Anxiety Last Admin: 01/31/21 19:58 Dose: 25 mg Documented by: Magnesium Hydroxide (Milk Of Magnesia 30 Ml Oral.Susp) 30 ml PO DAILY PRN PRN Reason: Constipation Mirtazapine (Mirtazapine 30 Mg Tablet) 30 mg PO BEDTIME [facility] Last Admin: 01/31/21 19:58 Dose: 30 mg Documented by: Omeprazole (Omeprazole 20 Mg Capsule.Dr) 20 mg PO DAILY [facility] Last Admin: 02/01/21 10:04 Dose: 20 mg Documented by: Quetiapine Fumarate (Quetiapine Fumarate 50 Mg Tablet) 50 mg PO BEDTIME [facility] Last Admin: 01/31/21 19:58 Dose: 50 mg Documented by: Quetiapine Fumarate (Quetiapine Fumarate 25 Mg Tablet) 25 mg PO DAILY [facility] Last Admin: 02/01/21 10:05 Dose: 25 mg Documented by: Ropinirole HCl (Ropinirole Hcl 1 Mg Tablet) 1 mg PO BID [facility] Last Admin: 02/01/21 10:04 Dose: 1 mg Documented by: Trazodone HCl (Trazodone Hcl 50 Mg Tablet) 50 mg PO BEDTIME PRN PRN Reason: Insomnia Last Admin: 01/31/21 19:58 Dose: 50 mg Documented by: Allergies Allergies Allergy/AdvReac Type Severity Reaction Status Date / Time No Known Allergies Allergy Unverified 01/04/20 16:15 [No Known Allergies*] Assessment & Plan Assessment & Plan (1) Opioid use disorder: Status: Acute Code(s): F11.90 - Opioid use, unspecified, uncomplicated Assessment and Plan: Continue Suboxone 4 mg b.i.d. appears to be helping with cravings Assessment and Plan: The patient is an elderly male with a past history of substance abuse who has been clean and sober for more than 30 years. He relapsed in the last 2 years on opioids after the diagnosis of throat cancer. Plan 1. Keep Remeron up to 30 mg p.o. q.h.s. to target insomnia and depression. 2. Continue same medications. 3. A consult to speech and swallow was done and they recommended to reassess after biopsy of the throat at the end of the month. Apparently, the patient does not want to participate on a special diet. Seroquel 50 mg bedtime help with sleep she help with depression and 25 mg in the a.m. for anxiety and depressive symptoms patient continues to be intermittently hopeless helpless with thoughts that he may be better off . 4. Discontinue Suboxone Weekend coverage: Will trial an increase in clonidine to 0.1 mg TID PRN for sx of hyperarousal, anxiety. Reviewed risks and benefits, monitoring for dizziness. No other changes made to med plan. Greater than 50% of the session was spent on counseling and/or coordination of care Reason for contiued inpatient stay Substantial Risk for: rapid decompensation and med/psych decompensation
[2021-02-01] MEDS: hydrOXYzine HCL 25 MG TABLET PO (21:28)
[2021-02-01] MEDS: traZODone HCL 50 MG TABLET PO (21:28)
[2021-02-01] MEDS: Mirtazapine 30 MG TABLET PO (21:28)
[2021-02-01] MEDS: QUEtiapine Fumarate 50 MG TABLET PO (21:28)
[2021-02-02 06:00] VITALS: BP 131/87; PULSE 70; RESP 16; TEMP 36.1; O2SAT 96
[2021-02-02] MEDS: Omeprazole 20 MG CAPSULE.DR PO (09:00)
[2021-02-02] MEDS: QUEtiapine Fumarate 25 MG TABLET PO (09:01)
[2021-02-02] MEDS: FLUoxetine HCl 20 MG CAPSULE PO (09:01)
[2021-02-02] MEDS: rOPINIRole HCL 1 MG TABLET PO ×2 (09:01→20:28)
[2021-02-02] MEDS: clonazePAM 0.5 MG TABLET PO ×2 (09:04→20:32)
[2021-02-02 18:00] VITALS: BP 142/77; PULSE 89; RESP 18; TEMP 37.2; O2SAT 98
[2021-02-02] MEDS: QUEtiapine Fumarate 50 MG TABLET PO (20:28)
[2021-02-02] MEDS: Mirtazapine 30 MG TABLET PO (20:28)
[2021-02-03 06:00] VITALS: BP 137/74; PULSE 85; RESP 14; TEMP 36.8; O2SAT 97
--- NOTE | 2021-02-03 07:36 | HO.PSYCHPN ---
Subjective Subjective Date of Service: 02/02/21 Reason For Visit: suicidal ideation Interim History: Patient seen and discussed with team. Patient evaluated this morning and upon interview he declines to engage, says I dont know if clonidine helped. Continues to struggle with thoughts of relapsing since self discontinuing suboxone. In the milieu, patient is safe but withdrawn and isolative in behavior. Denies SI/SIB/HI upon inquiry. Denies irritability or assaultive ideation. Says he feels safe. Medication Compliance: Yes Side effects from medications: No Attending Groups: No Review of Systems Acute medical concerns: No Medical Review of Systems: unchanged Mental Status Exam Mental Status Exam Narrative: Narrative:?Patient Appearance:?Disheveled Patient Orientation:?Person, Place, Time and Situation Level of Consciousness:?Awake and Appropriate Patient Behavior:?Cooperative Mood Description:?Depressed Affect Description:?Constricted Patient Cognition Impaired:?No Ability to Follow Directions:?Good Speech Pattern:?Poor Articulation (Coarse voice) Memory Description:?Intact Hallucinations:?None Delusions:?Not Present Thought Process:?Intact Thought Content:?positive for Circumstantial Judgement:?Fair Diagnostics Vital Signs (24Hr): Vital Signs - 24 hr 02/02/21 18:00 Temperature 98.9 F Pulse Rate 89 Respiratory Rate 18 Blood Pressure 142/77 H Pulse Oximetry 98 Body Mass Index 20.8 Labs Results: 01/22/21 12:12 01/23/21 06:04 Imaging Radiology Impressions: ITS Impressions Hand X-Ray 01/22/21 16:24 IMPRESSION: 1. Probable nondisplaced fracture through the radial aspect of the 1st distal phalanx which contacts the articular surface. 2. Possible mildly displaced fracture along the radial base of the 5th proximal phalanx. Correlate for focal tenderness. 3. Scattered degenerative arthritis. Medications Medications Current Medications Acetaminophen (Acetaminophen 325 Mg Tablet) 650 mg PO Q6H PRN PRN Reason: Headache/Pain Mild Scale (1-3) Last Admin: 01/21/21 04:10 Dose: 650 mg Documented by: Al Hydroxide/Mg Hydroxide (Magnesium Hydrox/Alum Hydrox 30 Ml Oral.Susp) 30 ml PO Q6H PRN PRN Reason: Heartburn/Nausea Benzocaine (Throat Lozenge, Medicated Lozenge) 1 lozenge MUCOUS MEM Q2H PRN PRN Reason: Sore Throat Clonazepam (Clonazepam 0.5 Mg Tablet) 0.5 mg PO TID PRN PRN Reason: agitation, anxiety Last Admin: 02/02/21 20:32 Dose: 0.5 mg Documented by: Clonidine HCl (Clonidine Hcl 0.1 Mg Tablet) 0.1 mg PO TID PRN; Protocol PRN Reason: palpitations Fluoxetine HCl (Fluoxetine Hcl 20 Mg Capsule) 20 mg PO DAILY [facility] Last Admin: 02/02/21 09:01 Dose: 20 mg Documented by: Hydroxyzine HCl (Hydroxyzine Hcl 25 Mg Tablet) 25 mg PO BEDTIME PRN PRN Reason: Anxiety Last Admin: 02/01/21 21:28 Dose: 25 mg Documented by: Magnesium Hydroxide (Milk Of Magnesia 30 Ml Oral.Susp) 30 ml PO DAILY PRN PRN Reason: Constipation Mirtazapine (Mirtazapine 30 Mg Tablet) 30 mg PO BEDTIME [facility] Last Admin: 02/02/21 20:28 Dose: 30 mg Documented by: Omeprazole (Omeprazole 20 Mg Capsule.Dr) 20 mg PO DAILY [facility] Last Admin: 02/02/21 09:00 Dose: 20 mg Documented by: Quetiapine Fumarate (Quetiapine Fumarate 50 Mg Tablet) 50 mg PO BEDTIME [facility] Last Admin: 02/02/21 20:28 Dose: 50 mg Documented by: Quetiapine Fumarate (Quetiapine Fumarate 25 Mg Tablet) 25 mg PO DAILY [facility] Last Admin: 02/02/21 09:01 Dose: 25 mg Documented by: Ropinirole HCl (Ropinirole Hcl 1 Mg Tablet) 1 mg PO BID [facility] Last Admin: 02/02/21 20:28 Dose: 1 mg Documented by: Trazodone HCl (Trazodone Hcl 50 Mg Tablet) 50 mg PO BEDTIME PRN PRN Reason: Insomnia Last Admin: 02/01/21 21:28 Dose: 50 mg Documented by: Allergies Allergies Allergy/AdvReac Type Severity Reaction Status Date / Time No Known Allergies Allergy Unverified 01/04/20 16:15 [No Known Allergies*] Assessment & Plan Assessment & Plan (1) Opioid use disorder: Status: Acute Code(s): F11.90 - Opioid use, unspecified, uncomplicated Assessment and Plan: Continue Suboxone 4 mg b.i.d. appears to be helping with cravings Assessment and Plan: The patient is an elderly male with a past history of substance abuse who has been clean and sober for more than 30 years.? He relapsed in the last 2 years on opioids after the diagnosis of throat cancer. Plan 1. Keep Remeron up to 30 mg p.o. q.h.s. to target insomnia and depression. 2. Continue same medications. 3. A consult to speech and swallow was done and they recommended to reassess after biopsy of the throat at the end of the month.? Apparently, the patient does not want to participate on a special diet. Seroquel 50 mg bedtime help with sleep she help with depression and 25 mg in the a.m. for anxiety and depressive symptoms patient continues to be intermittently hopeless helpless with thoughts that he may be better off . 4. Discontinue Suboxone Weekend coverage: Will trial an increase in clonidine to 0.1 mg TID PRN for sx of hyperarousal, anxiety. Reviewed risks and benefits, monitoring for dizziness. No other changes made to med plan. Greater than 50% of the session was spent on counseling and/or coordination of care Reason for contiued inpatient stay Substantial Risk for: rapid decompensation and med/psych decompensation
[2021-02-03] MEDS: Omeprazole 20 MG CAPSULE.DR PO (08:20)
[2021-02-03] MEDS: FLUoxetine HCl 20 MG CAPSULE PO (08:20)
[2021-02-03] MEDS: rOPINIRole HCL 1 MG TABLET PO (08:21)
[2021-02-03] MEDS: QUEtiapine Fumarate 25 MG TABLET PO (08:21)
[2021-02-03] MEDS: clonazePAM 0.5 MG TABLET PO (09:55)
--- NOTE | 2021-02-03 10:23 | PM.PSYDC ---
DS: Providers Provider Date of Service: 02/03/21 Date of admission: 01/20/21 12:44 Date of discharge: 02/03/21 Primary care physician: Darrell Kelly MD Consults: 01/20/21 18:21 Addiction Medicine Routine Consulting Provider: Aniyah Wilson Reason for consultation: re-starting suboxone Has provider been notified: Yes 01/22/21 10:58 Consult to Hospitalist Routine Consulting Provider: Hospitalist Reason For Exam: Left hand pain, R/O cellulitis Attending physician on discharge: Freddy Garcia DS: Diagnosis Discharge Diagnosis (1) MDD (major depressive disorder), recurrent episode, moderate: Status: Acute (2) Opioid use disorder: Status: Acute DS: Medications Discharge Medications Home Medications: Home Medications Medication Instructions Recorded Confirmed clonazepam 1 mg tablet 1 mg PO TID PRN 10/08/20 01/18/21 fluoxetine 20 mg capsule 20 mg PO DAILY 10/08/20 01/18/21 quetiapine 25 mg tablet 25 mg PO BEDTIME 10/08/20 01/18/21 trazodone 50 mg tablet 50 mg PO BEDTIME PRN 10/08/20 01/18/21 omeprazole 20 mg capsule,delayed 20 mg PO DAILY 01/18/21 01/18/21 release ropinirole 1 mg tablet 1 mg PO BID 01/18/21 01/18/21 Previous Rx's Medication Instructions Recorded clonidine HCl 0.1 mg tablet 0.1 mg PO TID #30 tab 10/09/20 Mental Status Exam Mental Status Exam Patient Appearance: Well Grooomed Patient Orientation: Person, Place, Time and Situation Level of Consciousness: Awake Mood Description: Calm Affect Description: Calm Patient Cognition Impaired: No Ability to Follow Directions: Good Speech Pattern: Clear Memory Description: Intact Hallucinations: None Delusions: Not Present Thought Process: Intact Thought Content: positive for Circumstantial Depressive Symptoms: Increased Anxiety Judgement: Fair Data Imaging Diagnostic Imaging Impressions Hand X-Ray 01/22/21 16:24 IMPRESSION: 1. Probable nondisplaced fracture through the radial aspect of the 1st distal phalanx which contacts the articular surface. 2. Possible mildly displaced fracture along the radial base of the 5th proximal phalanx. Correlate for focal tenderness. 3. Scattered degenerative arthritis. DS: Summary Hospital Course Hospital Course: The patient was admitted to this unit since he complained of suicidal ideation with a plan to overdose and exacerbation of depressive symptoms in the context of recent relapse to opioids. The patient has a lesion on his throat and most likely he thought that he had throat cancer and he does not want to be treated and he felt that he was terminal. Please see more details on HPI of admission note. On admission, he was started on his medications and antidepressants and we at Remeron titrated up to 15 mg p.o. q.h.s. to target insomnia and mood disorder. We discussed at length with substance abuse treatment team and the patient and he initially wanted to be on Suboxone but later he decided to be discharged without any opioids so the Suboxone was slowly tapered off with initial withdrawal symptoms but later he was more stable. The patient denies suicidal ideation, he was able to contract for safety he was willing to follow treatment outside. Since there were no safety concerns discharge planning was discussed Status at Discharge Cognitive/behavioral status at discharge: At baseline Functional status at discharge: independent ambulation Overall status at discharge: patient is back to baseline Time Spent with Patient Time attestation: Total time spent providing and/or coordinating discharge services: Time spent: Less than 30 minutes Discharge Plan Discharge Patient Disposition: Home, Self-Care Discharge Diagnosis: Major depressive disorder Opiate use disorder Referrals: [facility] (therapists) [facility] [Other] - 02/04/21 12:00 pm (Appointment scheduled for with Juventino Norris on 02/04/21 @ 12 PM in office visit preferred, if not then telehealth.) [facility] [Other] - 02/10/21 3:00 pm (Appointment scheduled for 02/10/21 @ 3 PM for ultrasound guided biopsy with Dr. Skinny Zhou.) [facility] [Other] - 02/18/21 3:30 pm (Follow up appointment to discuss ultra sound biopsy results on 02/18/21 @ 3:[address] Ramon Ybarra.) [facility] (psychiatrists) [Other] - 02/04/21 1:00 pm (Appointment scheduled with Jez Jose on 02/04/21 @ 12 PM via telehealth. Please do not miss this appointment as it is for your medications.) Darrell Kelly MD [Primary Care Provider] - 1 Week Discharge Medications: New mirtazapine 30 mg Tablet 30 mg PO BEDTIME 30 Days Qty: 30 RF: 0 Narcan 4 mg/actuation spray,non-aerosol 1 spray intranasal ONCE Qty: 2 RF: 0 Continued quetiapine 25 mg tablet 25 mg PO BEDTIME 30 Days Qty: 30 RF: 0 clonidine HCl 0.1 mg tablet 0.1 mg PO TID 30 Days Qty: 90 RF: 0 ropinirole 1 mg tablet 1 mg PO BID 30 Days Qty: 60 RF: 0 trazodone 50 mg tablet 50 mg PO BEDTIME PRN (Reason: Insomnia) 30 Days RF: 0 clonazepam 1 mg tablet 1 mg PO TID PRN (Reason: Anxiety) 30 Days Qty: 60 RF: 0 omeprazole 20 mg capsule,delayed release(DR/EC) 20 mg PO DAILY 30 Days Qty: 30 RF: 0 fluoxetine 20 mg capsule 20 mg PO DAILY 30 Days Qty: 30 RF: 0 Discharge Orders: Discharge Order (Routine); Ordered 02/03/21 Ordered By: Freddy Garcia Diet: advance to usual diet Activity on Discharge: As tolerated Stand Alone Forms: Patient Portal Discharge page Care Plan Goals: Care plans achieved in the [facility] Concerns: Continue treatment with his PCP. Continue follow-up with ENT, he has a schedule a biopsy I did of January Plan of Treatment: Continue follow-up treatment as an outpatient Assessment: Elderly male with a long history of major depressive disorder, opioid use disorder and other comorbidities admitted for suicidality. At this moment he is able to contract for safety he is willing to continue treatment as an outpatient.
--- NOTE | 2021-02-03 13:00 | PC.NURSE ---
Patient alert and oriented. Dressed appropriately. Neatly groomed. Showered and shaved this a.m. No problems noted or reported. Patient expresses readiness for discharge. All discharge instructions reviewed with patient including medications and follow up appointments.Patient verbalized understanding. PCP appointment was unable to be made. Will follow up with PCP and advise patient. Patient was escorted to [facility] where he was met by his brother.
== END 2021-02-03 13:00 | disposition home or self-care (01) | DRG 885 ==
LOC: HO.ED 18:49 → HO.PGERI 01-20 13:20
PROVIDERS: Nurse Practitioner Family; Admitting Provider Psychiatry & Neurology Psychiatry; Emergency Provider Emergency Medicine Emergency Medical Services; PCP Internal Medicine; Visit Provider Psychiatry & Neurology Psychiatry
DX: F33.1 Major depressive disorder, recurrent, moderate (principal); R45.851 Suicidal ideations; Z20.822 Contact with and (suspected) exposure to COVID-19; F10.20 Alcohol dependence, uncomplicated; Z23 Encounter for immunization; F17.210 Nicotine dependence, cigarettes, uncomplicated; Z71.6 Tobacco abuse counseling; Z79.899 Other long term (current) drug therapy
CPT/HCPCS: 36415; 73120; 80048; 80061; 80307; 82077; 83036; 85025; 87635; 90686; 92610; 93005; 99285

== ENCOUNTER 2021-02-05 15:07 | Emergency (ER) | payer MEDICARE, OTHER, SELFPAY ==
[2021-02-05 15:22] VITALS: BMI 25.8
[2021-02-05 15:29] VITALS: BP 111/53; PULSE 74; RESP 14; O2SAT 92
[2021-02-05] MEDS: Naloxone HCl 0.4 MG/ML VIAL IM (16:07)
[2021-02-05 16:18] VITALS: PULSE 71; RESP 15; O2SAT 96
--- NOTE | 2021-02-05 16:21 | PC.NURSE ---
Pt was given IM narcan and mental status has improved. Pt is awake, alert and oriented and is drinking [place]. Pt is tolerating PO intake well.
--- NOTE | 2021-02-05 16:22 | ED_ITS ---
HPI - General Adult General Chief complaint: ETOH/Substance Use <Tad Titus MD - Last Filed: 02/05/21 16:28> Stated complaint: OVERDOSE <Tad Titus MD - Last Filed: 02/05/21 16:28> Time Seen by Provider: 02/05/21 15:16 <Tad Titus MD - Last Filed: 02/05/21 16:28> Source: patient and EMS <Tad Titus MD - Last Filed: 02/05/21 16:28> Mode of arrival: EMS <Tad Titus MD - Last Filed: 02/05/21 16:28> Limitations: no limitations <Tad Titus MD - Last Filed: 02/05/21 16:28> History of Present Illness HPI narrative: 70-year-old male who presents emergency department for evaluation of unintentional opiate overdose. The patient was brought in by ambulance. Apparently a neighbor found him minimally responsive with drug paraphernalia and the needle in his arm. The patient was not given Narcan since he appeared to maintain his airway. However, the patient is drowsy. The patient was able to give me a history. He states that he uses injection 4 bags of heroin heroin twice a day. He does admit to using heroin prior to coming to the emergency department. He states that he is 70 years old and he is just trying to enjoy his life and he was not trying to kill himself. He denied being ill in any way prior to coming to the emergency department. He denied fever, chills, chest pain, shortness of breath, nausea, vomiting, abdominal pain, myalgias or arthralgias. <Tad Titus MD - Last Filed: 02/05/21 16:28> Related Data Home medications: Previous Rx's Medication Instructions Recorded clonazepam 1 mg tablet 1 mg PO TID PRN 30 Days #60 tab 02/03/21 clonidine HCl 0.1 mg tablet 0.1 mg PO TID 30 Days #90 tab 02/03/21 fluoxetine 20 mg capsule 20 mg PO DAILY 30 Days #30 cap 02/03/21 mirtazapine 30 mg tablet 30 mg PO BEDTIME 30 Days #30 tab 10/18/21 naloxone 4 mg/actuation nasal 1 spray INTRANASAL ONCE #2 ea 02/03/21 spray (Narcan) omeprazole 20 mg capsule,delayed 20 mg PO DAILY 30 Days #30 cap 02/03/21 release quetiapine 25 mg tablet 25 mg PO BEDTIME 30 Days #30 tab 02/03/21 ropinirole 1 mg tablet 1 mg PO BID 30 Days #60 tab 02/03/21 trazodone 50 mg tablet 50 mg PO BEDTIME PRN 30 Days tab 02/03/21 <Tad Titus MD - Last Filed: 02/05/21 16:28> Allergies/adverse reactions: Allergies Allergy/AdvReac Type Severity Reaction Status Date / Time No Known Allergies Allergy Unverified 01/04/20 16:15 [No Known Allergies*] <Tad Titus MD - Last Filed: 02/05/21 16:28> Review of Systems Review of Systems: Yes all other systems are reviewed and are negative <Tad Titus MD - Last Filed: 02/05/21 16:28> [facility] Past Medical History [facility] Narrative: Past medical history bleeding ulcers. Social history: Patient states he lives alone. He does smoke 1 pack of cigarettes per day times many years. He states that he drinks alcohol occasionally. He states that he injects 4 bags of heroin twice a day. <Tad Titus MD - Last Filed: 02/05/21 16:28> Social History Social History: Social History Household Members: Friend(s) Household Members Other:: Friend named Anmol. Housing: Apartment Do you presently have visiting nurse or other home services: No Alcohol intake: current Alcohol intake frequency: 0-2 drinks per day Patient Tobacco Use Status: Current everyday Tobacco user Tobacco use type: Cigarette Cigarette Packs Per Day: 0.5 Cigarettes Per Day: 10.0 Years Smoked: 54 e-Cigarette/Vaping Use: Never Used Second Hand Smoke Exposure: Yes Use of substances other than those prescribed or required for medical reasons: Yes Substance Use Type: Heroin and Opiates Advance Directives: No Advance Directives Information Provided: No service: No Sexual orientation: Straight/Heterosexual <Tad Titus MD - Last Filed: 02/05/21 16:28> Physical Exam Vital Signs: Vital Signs: Last Vital Signs Pulse 69 02/05/21 18:30 Resp 14 02/05/21 18:30 BP 111/53 L 02/05/21 15:29 Pulse Ox 99 02/05/21 18:30 Body Mass Index 25.8 <Tad Titus MD - Last Filed: 02/05/21 16:28> Vital Signs: Last Vital Signs Pulse 69 02/05/21 18:30 Resp 14 02/05/21 18:30 BP 111/53 L 02/05/21 15:29 Pulse Ox 99 02/05/21 18:30 Body Mass Index 25.8 <Rosa M Castillo MD - Last Filed: 02/05/21 19:13> Const: Other: Somnolent but arousable 7-year-old male, he does not appear to be in distress, he does answer all questions appropriately. <Tad Titus MD - Last Filed: 02/05/21 16:28> Orientation/consciousness: oriented to person and oriented to place <Tad Titus MD - Last Filed: 02/05/21 16:28> HENMT: Head: Yes normal to inspection, Yes normocephalic and Yes atraumatic <Tad Titus MD - Last Filed: 02/05/21 16:28> Ears: external ears normal <Tad Titus MD - Last Filed: 02/05/21 16:28> General nose exam: Normal external nose present <Tad Titus MD - Last Filed: 02/05/21 16:28> Face and sinus: Yes normal facial exam <Tad Titus MD - Last Filed: 02/05/21 16:28> Mouth: Normal oral and palatal mucosa present <Tad Titus MD - Last Filed: 02/05/21 16:28> Throat: Yes posterior oropharynx normal <Tad Titus MD - Last Filed: 02/05/21 16:28> Eyes: General: appearance normal, both eyes and all related structures <Tad Titus MD - Last Filed: 02/05/21 16:28> Pupils: Equal, round and reactive pupils present <MD Alfredo Pate Last Filed: 02/05/21 16:28> Neck: Neck: Yes normal visual inspection, Yes no lymphadenopathy, Yes trachea midline and Yes supple <Tad Titus MD - Last Filed: 02/05/21 16:28> Chest: Chest palpation & inspection: normal inspection of the chest and normal palpation of entire chest wall <Tad Titus MD - Last Filed: 02/05/21 16:28> Resp: Effort & Inspection: normal respiratory effort and able to speak in complete sentences <Tad Titus MD - Last Filed: 02/05/21 16:28> Auscultation: clear to auscultation bilaterally <Tad Titus MD - Last Filed: 02/05/21 16:28> Cardio: Rate: regular rate <Tad Titus MD - Last Filed: 02/05/21 16:28> Rhythm: regular rhythm <MD Alfredo Pate Last Filed: 02/05/21 16:28> Heart sounds: S1 normal heart sound present, S2 normal heart sound present and no murmurs <MD Alfredo Pate Last Filed: 02/05/21 16:28> GI: Inspection: Yes normal to inspection <MD Alfredo Pate Last Filed: 02/05/21 16:28> Palpation (GI): Soft to palpation, nontender and no guarding <Tad Titus MD - Last Filed: 02/05/21 16:28> Auscultation: normal bowel sounds <MD Alfredo Pate Last Filed: 02/05/21 16:28> : General: Yes no CVA tenderness <MD Alfredo Pate Last Filed: 02/05/21 16:28> Back/Spine/Pelvis: Back: no CVA tenderness <MD Alfredo Pate Last Filed: 02/05/21 16:28> Skin: General skin exam: no rashes or lesions noted <MD Alfredo Pate Last Filed: 02/05/21 16:28> Neuro: General: oriented to person and oriented to place <Tad Titus MD - Last Filed: 02/05/21 16:28> Cranial nerves: Yes CN's II-XII intact bilaterally and Yes Equal, round and reactive pupils present <Tad Titus MD - Last Filed: 02/05/21 16:28> Cognition (Neuro): normal cognition <Tad Titus MD - Last Filed: 02/05/21 16:28> Motor exam (neuro): 5/5 motor strength present throughout <Tad Titus MD - Last Filed: 02/05/21 16:28> Extrem: General: Yes normal to inspection <Tad Titus MD - Last Filed: 02/05/21 16:28> Psych: Appearance: grossly normal <Tad Titus MD - Last Filed: 02/05/21 16:28> Speech and movement: Normal speech and movement present <Tad Titus MD - Last Filed: 02/05/21 16:28> Affect: normal affect <Tad Titus MD - Last Filed: 02/05/21 16:28> Attitude: cooperative <Tad Titus MD - Last Filed: 02/05/21 16:28> Thought process: Normal thought process present <Tad Titus MD - Last Filed: 02/05/21 16:28> Thought content: Normal thought content present <Tad Titus MD - Last Filed: 02/05/21 16:28> Course Course Course Narrative: 70-year-old male who injects 4 bags of injection heroin twice a day who presents emergency department for evaluation of altered mental status. He was found altered by his neighbor with drug paraphernalia around him and a needle in his arm. Paramedics found the patient to be somnolent but arousable and did not give any Narcan. Here in the emergency department he is somnolent but arousable. The patient was ordered to be placed on a continuous quality assurance monitor and a pulse oximetry monitor. I ordered Narcan 0.4 mg IM. The patient will need to be observed in the emergency department until he is awake and alert be discharged home. At the end of my shift, the patient's care was turned over to my colleague, Dr. Castillo. <Tad Titus MD - Last Filed: 02/05/21 16:28> Medical Decision Making MDM Narrative Medical decision making narrative: Patient monitor for few hours. Now is awake alert oriented. Ambulatory. No distress. Does not want detox. Substance abuse culture discussed with patient. Will go ahead and give Narcan kit. Patient in stable condition. <Rosa M Castillo MD - Last Filed: 02/05/21 19:13> Discharge Plan Discharge Clinical Impression: Opioid abuse with intoxication, unspecified, Opioid use disorder <Tad Titus MD - Last Filed: 02/05/21 16:28> Patient Disposition: Home, Self-Care <Tad Titus MD - Last Filed: 02/05/21 16:28> Instructions: Narcotic Use Disorder (ED) <Tad Titus MD - Last Filed: 02/05/21 16:28> Prescriptions: No Action mirtazapine 30 mg Tablet 30 mg PO BEDTIME 30 Days Qty: 30 RF: 0 Narcan 4 mg/actuation spray,non-aerosol 1 spray intranasal ONCE Qty: 2 RF: 0 quetiapine 25 mg tablet 25 mg PO BEDTIME 30 Days Qty: 30 RF: 0 clonidine HCl 0.1 mg tablet 0.1 mg PO TID 30 Days Qty: 90 RF: 0 ropinirole 1 mg tablet 1 mg PO BID 30 Days Qty: 60 RF: 0 trazodone 50 mg tablet 50 mg PO BEDTIME PRN (Reason: Insomnia) 30 Days RF: 0 clonazepam 1 mg tablet 1 mg PO TID PRN (Reason: Anxiety) 30 Days Qty: 60 RF: 0 omeprazole 20 mg capsule,delayed release(DR/EC) 20 mg PO DAILY 30 Days Qty: 30 RF: 0 fluoxetine 20 mg capsule 20 mg PO DAILY 30 Days Qty: 30 RF: 0 <Tad Titus MD - Last Filed: 02/05/21 16:28> Referrals: Darrell Kelly MD [Primary Care Provider] - 2 days (Please stop using heroin. Using heroin can kill you. Please go to detox. A Narcan kit was given to you.) <Tad Titus MD - Last Filed: 02/05/21 16:28>
--- NOTE | 2021-02-05 16:54 | MHC.RECOVSUP ---
? Reason for consult Recovery support o Current location: ED13 o Identified substance use concern: Heroin - Overdose - Support ? Intervention: <del>o</del> <del>[facility]</del> <del>bed</del> <del>search</del> <del>started/completed/in</del> <del>process</del> <del>o</del> <del>MAT</del> <del>started</del> <del>or</del> <del>to</del> <del>be</del> <del>started</del> <del>o</del> <del>Community</del> <del>resources</del> <del>provided</del> <del>o</del> <del>Harm</del> <del>reduction</del> <del>discussion</del> ? Plan: <del>o</del> <del>Referral</del> <del>to</del> <del>[facility]</del> <del>o</del> <del>Bed</del> <del>search</del> <del>in</del> <del>progress</del> <del>to</del> <del>o</del> <del>Follow</del> <del>up</del> <del>tomorrow</del> <del>o</del> <del>Patient</del> <del>awaiting</del> <del>crisis</del> <del>evaluation</del> <del>o</del> <del>Patient</del> <del>to</del> <del>follow</del> <del>up</del> <del>with</del> <del>[facility]</del> <del>after</del> <del>discharge</del> ? Additional information: Patient refused any Services, Stated I just want to go home
[2021-02-05 18:30] VITALS: PULSE 69; RESP 14; O2SAT 99
== END 2021-02-05 19:28 | disposition home or self-care (01) ==
PROVIDERS: Emergency Provider Emergency Medicine Emergency Medical Services; PCP Internal Medicine
DX: F11.129 Opioid abuse with intoxication, unspecified (principal)
CPT/HCPCS: 96372; 99284